=== PATIENT | female | born 1930 | race Caucasian/White ===

== ENCOUNTER 2018-02-15 14:03 | Emergency (ER) | payer MEDICARE, OTHER ==
[~2018-02-15] VITALS: Ht 142.2 cm; Wt 89.8 kg
[~2018-02-15 14:03] MED LIST: ALDACTONE25 MG PO; ALLOPURINOL 10100 M1 PO; ASPIRIN325 PO; ASPIRIN81 M2 PO; CARVEDILOL6.25 MG PO; CICLODAN90 GM TOP; COLACE100 MG PO; COREG6.25 MG PO; CYMBALTA60 MG PO; GLUCOPHAGE1000 MG PO; GLUCOPHAGE500 MG PO; HYDROCODON-ACE1 EAC7 PO; KLOR-CON 1010 MEQ PO; LEVOTHYROXIN0.125 M1 PO; LEVOTHYROXINE 0.1 MG PO; LEVOTHYROXINE100 MCG PO; LUMIGAN2.5 M1 OPHTHALMIC; MICARDIS 80 MG80 MG PO; NAPROSYN500 MG PO; OXYCODONE HCL 55 MG PO; PERCOCET PO; PRISTIQ50 M1 PO; PROAIR HFA8.5 GM; PROAIR HFA8.5 GM INH; PROAIR RESPICL90 MCG INH; TRAZODONE HCL50 MG PO
[2018-02-15 15:14] LABS: ABSOLUTE BASOPHILS 0.1 thou/uL (0.0-0.2); ABSOLUTE EOSINOPHILS 0.4 thou/uL (0.0-0.7); ABSOLUTE LYMPHOCYTES 1.7 thou/uL (0.8-5.3); ABSOLUTE MONOCYTES 0.8 thou/uL (0.0-1.2); ABSOLUTE NEUTROPHILS 8.5 thou/uL (1.6-8.1); BASOPHILS 0.5 %; EOSINOPHILS 3.2 %; HEMATOCRIT 42.9 % (37.0-47.0); HEMOGLOBIN 13.6 gm/dL (12.0-15.0); MCH 27.9 pg (26.0-34.0); MCHC 31.7 g/dL (28.0-37.0); MCV 88.2 fL (80.0-100.0); MONOCYTES 6.9 %; MPV 8.8 fl. (7.2-11.1); NUCLEATED RBCS 0 /100WBC; PLATELET COUNT* 301 thou/uL (150-400); POLYS 74.4 %; RBC 4.86 mil/uL (4.20-5.00); RDW-CV 15.8 % (10.5-14.5); WBC 11.4 thou/uL (4.0-11.0)
[2018-02-15 15:23] LABS: APTT 27.1 Seconds (25.0-31.3); INR 1.2; PROTIME 11.9 Seconds (9.20-11.50)
[2018-02-15 15:37] LABS: CALCIUM 9.4 mg/dL (8.5-10.1); CREATININE 1.2 mg/dL (0.6-1.3); POTASSIUM 3.4 mmol/L (3.5-5.1)
[2018-02-15 15:41] LABS: TOTAL BILIRUBIN 0.5 mg/dL (<0.1-1.0); TOTAL PROTEIN 7.2 g/dL (6.4-8.2)
[2018-02-15 17:00] VITALS: BP 127/62
--- NOTE | 2018-02-16 11:23 | EKG ---
[place] [address] ELECTROCARDIOGRAM REPORT Name: CALEB CHAUDHRY Room: [facility]#: [id number] Admission: 02/15/18 Attend Phys: Discharge: 02/15/18 Date of : 34 Report #: [id number] THIS REPORT FOR: //name// [facility] ED Test Date: 2018-02-15 Test Time: 14:39:20 Pat Name: CALEB CHAUDHRY Department: Room: Gender: F Product Owner: Patricia NAVARRETE : 1930 Requested By: Sol Patrick Order Number: [id number] MD: Mich Fisher Measurements Intervals [place] Rate: 91 P: -33 NM: 216 QRS: -50 QRSD: 102 T: 70 QT: 364 QTc: 448 Interpretive Statements Sinus rhythm Prolonged NM interval LAD, consider 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
== END 2018-02-15 17:01 | disposition home or self-care (01) ==
LOC: M.ERS 14:03
PROVIDERS: Physician Assistant
DX: L89.322 Pressure ulcer of left buttock, stage 2 (principal); R19.7 Diarrhea, unspecified; E11.622 Type 2 diabetes mellitus with other skin ulcer; M19.90 Unspecified osteoarthritis, unspecified site; I10 Essential (primary) hypertension; F32.9 Major depressive disorder, single episode, unspecified; G47.30 Sleep apnea, unspecified; E03.9 Hypothyroidism, unspecified; M10.9 Gout, unspecified; Z90.710 Acquired absence of both cervix and uterus; Z90.49 Acquired absence of other specified parts of digestive tract

== ENCOUNTER → 2019-07-04 | Outpatient (CLI) | payer MEDICARE, OTHER | LOC: M.CT 13:17 | DX: R10.84 Generalized abdominal pain (principal); K92.1 Melena ==

== ENCOUNTER 2019-08-06 06:05 | Inpatient (IN) | payer MEDICARE, OTHER ==
[~2019-08-06] VITALS: Ht 152.4 cm; Wt 79.8 kg
[2019-08-06 06:06] VITALS: BP 190/107
[2019-08-06 06:32] LABS: URINE BILIRUBIN NEGATIVE (Negative); URINE BLOOD 2+ (Negative); URINE CLARITY CLOUDY; URINE COLOR YELLOW; URINE GLUCOSE-RANDOM NEGATIVE (Negative); URINE KETONES NEGATIVE (Negative); URINE NITRITE-REFLEX NEGATIVE (Negative); URINE PROTEIN 1+ (Negative); URINE SPECIFIC GRAVITY 1.015 (1.005-1.030); URINE UROBILINOGEN 0.2 E.U./dl (0.2-1.0)
[2019-08-06 06:33] LABS: URINE LEUKOCYTES-REFLEX 3+ (Negative)
[2019-08-06 06:35] LABS: ABSOLUTE BASOPHILS 0.1 thou/uL (0.0-0.2); ABSOLUTE EOSINOPHILS 0.2 thou/uL (0.0-0.7); ABSOLUTE LYMPHOCYTES 1.1 thou/uL (0.8-5.3); ABSOLUTE MONOCYTES 1.7 thou/uL (0.0-1.2); ABSOLUTE NEUTROPHILS 12.7 thou/uL (1.6-8.1); BASOPHILS 0.7 %; EOSINOPHILS 1.5 %; HEMATOCRIT 37.2 % (37.0-47.0); HEMOGLOBIN 12.1 gm/dL (12.0-15.0); MCH 28.7 pg (26.0-34.0); MCHC 32.5 g/dL (28.0-37.0); MCV 88.5 fL (80.0-100.0); MONOCYTES 10.5 %; MPV 8.9 fl. (7.2-11.1); NUCLEATED RBCS 0 /100WBC; PLATELET COUNT* 281 thou/uL (150-400); POLYS 80.3 %; RDW-CV 15.7 % (10.5-14.5); WBC 15.8 thou/uL (4.0-11.0)
[2019-08-06 06:36] LABS: BACTERIA-REFLEX >30 Many /HPF (None Seen); CASTS None Seen /LPF (None Seen); CRYSTALS None Seen /LPF (None Seen); MUCUS None Seen strn/LPF (None Seen); SQUAMOUS 0-3 Few /LPF (0-3); URINE RBC >20 Many /HPF (0-2); URINE WBC-REFLEX >25 Many /HPF (0-5)
[2019-08-06 06:49] LABS: APTT 30.1 Seconds (25.0-31.3); CALCIUM 8.2 mg/dL (8.5-10.1); CREATININE 1.2 mg/dL (0.6-1.3); INR 1.2; POTASSIUM 4.2 mmol/L (3.5-5.1); PROTIME 12.7 Seconds (9.20-11.50)
[2019-08-06 06:57] LABS: ALBUMIN 2.3 g/dL (3.4-5.0); TOTAL BILIRUBIN 0.6 mg/dL (<0.1-1.0)
[2019-08-06] MEDS ORDERED: GLUCOPHAGE1000 MG PO (07:17)
[2019-08-06] MEDS ORDERED: DRIZALMA SPRINK60 MG PO (07:18)
[2019-08-06] MEDS ORDERED: ALLOPURINOL 10100 M3 PO (07:19)
[2019-08-06] MEDS ORDERED: NORVASC10 MG PO (07:19)
[2019-08-06] MEDS ORDERED: SPIRONOLACTONE25 MG PO (07:20)
[2019-08-06] MEDS ORDERED: LOSARTAN POTAS100 MG PO (07:21)
[2019-08-06] MEDS ORDERED: IMDUR 30 MG TAB30 M1 PO (07:21)
[2019-08-06] MEDS ORDERED: ASA81BEC PO (07:21)
[2019-08-06] MEDS ORDERED: ULTRAM 50MG TAB50 MG PO (07:21)
[2019-08-06] MEDS ORDERED: LEVOXYL125 MCG PO (07:21)
--- NOTE | 2019-08-06 07:38 | NUR ---
IV INSERTED BY PASTRY BAKER UNDER US GUIDANCE
--- NOTE | 2019-08-06 08:13 | NUR ---
DAYA NOTIFIED UPON PT RETURN FROM CT. DAYA WILL CONNECTE HER TO MONITOR
[2019-08-06 09:57] VITALS: BP 147/57
[2019-08-06 12:23] VITALS: BP 157/58
--- NOTE | 2019-08-06 15:47 | 2DMMODE ---
[place] [address] 2 D/M-MODE ECHOCARDIOGRAM Name: CALEB CHAUDHRY Room: [address] IN .R.#: [id number] Admission: 08/06/19 Attend Phys: Sherita bentley Sa Discharge: Date of : 34 Date of Service: 08/06/19 1545 Report #: [id number] THIS REPORT FOR: cc: Candy Martins,Candy Bruce,Ray Hwang MD [facility] ~ APPROVED REPORT Study performed: 08/06/2019 13:51:27 EXAM: Comprehensive 2D, Doppler, and color-flow Echocardiogram Patient Location: In-Patient BSA: 1.76 HR: 95 bpm BP: 124/76 mmHg Other Information Study Quality: Fair Indications Elevated BNP 2D Dimensions IVSd: 13.20 (7-11mm) LVOT Diam: 18.18 (18-24mm) LVDd: 43.79 mm PWd: 9.92 (7-11mm) Ascending Ao: 31.09 (22-36mm) LVDs: 31.12 (25-40mm) Aortic Root: 23.39 mm Volumes Left Atrial Volume (Systole) LA ESV Index: 34.20 mL/m2 Aortic Valve AoV Peak Vidal.: 1.25 m/s AO Peak Gr.: 6.28 mmHg LVOT Max P.97 mmHg AO Mean Gr.: 3.67 mmHg LVOT Mean P.11 mmHg LVOT Max V: 0.86 m/s AO V2 VTI: 19.69 cm LVOT Mean V: 0.70 m/s ISIDRO (VTI): 2.07 cm2 LVOT V1 VTI: 15.72 cm Mitral Valve MV Mean Gr.: 4.52 mmHg E/A Ratio: 4.24 [place] [address] 2 D/M-MODE ECHOCARDIOGRAM Name: CALEB CHAUDHRY Room: [address] IN .R.#: [id number] Admission: 08/06/19 Attend Phys: Sherita bentley Sa Discharge: Date of : 34 Date of Service: 08/06/19 1545 Report #: [id number] MV Decel. Time: 111.88 ms MV E Max Vidal.: 1.52 m/s MV PHT: 32.45 ms MVA (PHT): 6.78 cm2 TDI E/Lateral E': 13.82 E/Medial E': 4.11 Medial E' Vidal.: 0.37 m/s Lateral E' Vidal.: 0.11 m/s Pulmonary Valve PV Peak Vidal.: 0.87 m/s PV Peak Gr.: 3.00 mmHg Tricuspid Valve RAP Estimate: 5.00 mmHg TR Peak Gr.: 20.52 mmHg RVSP: 25.52 mmHg PA Pressure: 25.52 mmHg Left Ventricle The left ventricle is normal size. There is normal LV segmental wall motion. Mild concentric left ventricular hypertrophy. Left ventricular systolic function is hyperdynamic. LVEF is 65-70%. Right Ventricle The right ventricle is normal size. The right ventricular systolic function is normal. Atria Left atrium is borderline dilated. The right atrium size is normal. Aortic Valve Mild aortic valve sclerosis. No aortic regurgitation is present. There is no aortic valvular stenosis. Mitral Valve There is mitral annular calcification. There is no mitral valve regurgitation noted. No significant mitral valve stenosis. Tricuspid Valve The tricuspid valve is normal in structure. There is no tricuspid valve regurgitation noted. Pulmonic Valve The pulmonary valve is normal in structure. There is no pulmonic [place] [address] 2 D/M-MODE ECHOCARDIOGRAM Name: CALEB CHAUDHRY Room: [address]#: [id number] Admission: 08/06/19 Attend Phys: Sherita bentley Sa Discharge: Date of : 34 Date of Service: 08/06/19 1545 Report #: [id number] Great Vessels The aortic root is normal in size. IVC is normal in size and collapses >50% with inspiration. Pericardium There is no pericardial effusion. <Conclusion> The left ventricle is normal size. Mild concentric left ventricular hypertrophy. Left ventricular systolic function is hyperdynamic. LVEF is 65-70%. The right ventricle is normal size. Left atrium is borderline dilated. Mild aortic valve sclerosis. No aortic regurgitation is present. There is no aortic valvular stenosis. There is mitral annular calcification. There is no mitral valve regurgitation noted. No significant mitral valve stenosis. The tricuspid valve is normal in structure. IVC is normal in size and collapses >50% with inspiration. There is no pericardial effusion. There is normal LV segmental wall motion. <ELECTRONICALLY SIGNED> By: Ray Tuttle MD, FACC 08/06/19 1545 1545 1545 Ray Tuttle MD, FACC /INF
--- NOTE | 2019-08-06 16:25 | EKG ---
[place] [address] ELECTROCARDIOGRAM REPORT Name: CALEB CHAUDHRY Room: [address] ADM IN ..#: [id number] Admission: 08/06/19 Attend Phys: Sherita bentley Sa Discharge: Date of : 34 Date of Service: 08/06/19 0608 Report #: [id number] THIS REPORT FOR: //name// [facility] ED Test Date: 2019-08-06 Test Time: 06:08:02 Pat Name: CALEB CHAUDHRY Department: Room: [facility] Gender: F Perinatal Breastfeeding Assistant: [place] : 1930 Requested By: Bola Macias Order Number: [id number] MD: Ray Tuttle Measurements Intervals [place] Rate: 103 P: 33 FL: 212 QRS: 13 QRSD: 101 T: 67 QT: 320 QTc: 419 Interpretive Statements Sinus tachycardia Borderline prolonged [place] interval Anterior infarct, old Compared to ECG 02/15/2018 14:39:20 Sinus rate has increased Myocardial infarct finding still present Electronically Signed On 08-06-2019 16:23:42 CDT by Ray Tuttle [email or web address] <ELECTRONICALLY SIGNED> By: Ray Tuttle MD, [facility] 08/06/19 1623 0608 0608 Ray Tuttle MD, [facility] /EPI
[2019-08-06 17:06] VITALS: BP 157/69
--- NOTE | 2019-08-06 18:45 | NUR ---
PT ARRIVED TO UNIT VIA CART AT APPROX 0950, VSS, RA, TWISTER FRAME TENDER TRACING SINUS RHYTHM/SINUS TACH. PT A&O X4, BUT FORGETFUL, UP WITH ASSIST X1, GAIT BELT, AND WALKER, CT SHOWED NEGATIVE FOR FX. PT ORIENTED TO CALL LIGHT AND ROOM, HOURLY ROUNDING COMPLETED.
[2019-08-06 20:33] VITALS: BP 131/73
[2019-08-07] VITALS (7 sets, daily range): BP systolic 109–170; BP diastolic 49–80
[2019-08-07 05:19] LABS: HEMATOCRIT 39.9 % (37.0-47.0); HEMOGLOBIN 12.8 gm/dL (12.0-15.0); MCH 28.1 pg (26.0-34.0); MCHC 32.2 g/dL (28.0-37.0); MCV 87.3 fL (80.0-100.0); MPV 9.2 fl. (7.2-11.1); RBC 4.57 mil/uL (4.20-5.00); RDW-CV 15.5 % (10.5-14.5); WBC 13.5 thou/uL (4.0-11.0)
[2019-08-07 05:40] LABS: CALCIUM 8.4 mg/dL (8.5-10.1); CREATININE 0.9 mg/dL (0.6-1.3); POTASSIUM 3.7 mmol/L (3.5-5.1); TOTAL BILIRUBIN 0.4 mg/dL (<0.1-1.0); TOTAL PROTEIN 6.8 g/dL (6.4-8.2)
--- NOTE | 2019-08-07 05:49 | NUR ---
PATIENT ALERT BUT FORGETFUL. SHE LIKES TO LEAN SLIGHTLY FORWARD IN BED WITH PILLOW BEHIND HER BACK. ROOM AIR/ACHS. INCONTINENT. LOW AIR LOSS BED ORDERED. RECEIVED ALL MEDS SCHEDULED. RECEIVED TRAMADOL FOR PAIN. WILL CONTINUE TO FOLLOW PLAN OF CARE.
--- NOTE | 2019-08-07 15:10 | NUR ---
Pt is A&O, some forgetfulness. Pt resides at home alone. Independent with ADLs, though Pt states that she would like to have someone available to be stand by when she takes her baths, in case she needs them. CM left for Pt's dtr to discuss and confirm provided info. Family and neighbors assist with IADLs. Pt states that she has a lady that comes in every day around 10am to help rock picker her home. Unsure if Pt has had HH or SNF [place]. Per nurse, Pt will likely need HH [place] for wound care. CM awaiting call back from dtr. Following.
[2019-08-08 04:00] VITALS: BP 181/80
--- NOTE | 2019-08-08 04:44 | NUR ---
PATIENT HAS REMAINED ALERT AND ORIENTED X 4 WITH FORGETFULNESS. CALLING OUT FOR ASSIST RATHER THAN USING CALL LIGHT. USING BEDPAN FOR URINARY URGENCY AND INCONT SHE IS CALLING FOR ASSIST. DRESSINGS TO COCCYX AND LEFT ABD INTACT. SKIN CARE PROVIDED WITH Q2H TURNS. SR WITH 1ST DEGREE BLOCK ON MONITOR. DID HAVE A 6 BEAT RUN V-TACH IN THE NIGHT. MAGNESIUM REPLACEMENT IN PROGRESS. MEDS PER ORDER. CONTINUE TO MONITOR.
[2019-08-08 05:03] VITALS: BP 128/60
[2019-08-08 08:00] VITALS: BP 145/72
[2019-08-08 14:12] VITALS: BP 129/63
--- NOTE | 2019-08-08 14:32 | NUR ---
PT VSS, SR W/1*AVBLOCK ON TELE, ROOM AIR, A&OX4 BUT CONFUSED AND FORGETFUL AT BASELINE, ACCUCHECKS, UP WITH ONE TO CHAIR AND BEDSIDE COMMODE WITH GAIT BELT AND WALKER, , HOURLY ROUNDING PERFORMED, POSSESSIONS AND CALL LIGHT WITHIN REACH.
[2019-08-08 16:00] VITALS: BP 136/51
[2019-08-08 20:00] VITALS: BP 148/61
[2019-08-09 00:35] VITALS: BP 166/72
[2019-08-09 04:00] VITALS: BP 161/75
--- NOTE | 2019-08-09 07:02 | NUR ---
PT SLEPT WELL OVERNIGHT. REMAINS ON AIR MATTRESS FOR BUTTOCK WOUND. TURNED AND REPOSITIONED Q2 HOURS AND PRN FOR SKIN CARE AND COMFORT. INCONT URINE OVERNIGHT, IRISH CARE GIVEN. DRSG TO BUTTOCK CHANGED THIS MORNING ORDERED. UP WITH ASSIST TO BSC TO VOID THIS MORNING. AOX4, FORGETFUL, PLEASANT. NYSTATIN POWDER TO FOLDS ORDERED. ABLE TO USE CALL LITE AND MAKE NEEDS KNOWN. BED ALARM ON FOR SAFETY. TELE SR 1 DEGREE BLOCK.
[2019-08-09 08:10] VITALS: BP 174/64
--- NOTE | 2019-08-09 08:10 | NUR ---
ASSUMMED CARE OF PT FROM NIGHT NURSE. PT IS DOING WELL AND HAS NO CO OF PAIN OR NAUSEA AT THIS TIME. PT WAS EDUCATED ON PLAN OF CARE, FALL SAFETY, AND DISEASE PROCESS. HER BED IS IN THE LOWEST POSITION AND CALL LIGHT IS IN REACH, WILL CONTINUE TO MONITOR WITH HOURLY ROUNDING.
--- NOTE | 2019-08-09 08:32 | CON ---
[address] [address] CONSULTATION Name: CALEB CHAUDHRY Room: [address] IN M.R.#: [id number] Admission: 08/06/19 Attend Phys: Sherita Crouch Discharge: Date of : 34 Report #: [id number] THIS REPORT FOR: //name// cc: Candy Martins Linda J. DO ~ THIS REPORT FOR: //name// CC: Sherita Vences DATE OF SERVICE: 08/08/2019 INFECTIOUS DISEASE CONSULTATION ATTENDING PHYSICIAN: Sherita Mendoza MD REASON FOR EVALUATION: Pyelonephritis with Gram-negative septicemia secondary to Escherichia coli. HISTORY OF PRESENT ILLNESS: Chart reviewed, patient examined. This is an 89-year-old woman with some degree of dementia apparently, although lives by herself, who was admitted through the Emergency Room after 2 falls. Evaluation was undertaken, was found to have marked pyuria, slightly borderline elevated lactic acid of 1.9. Chest x-ray showed some increased basilar densities. Urine culture as well as blood culture now with Escherichia coli. It is generally susceptible. She is somewhat confused. It is difficult to ascertain. She states she may be better, she may not be better. She is somewhat lethargic. She is maintained on room air. Initially complains of pain and states she does not have pain. She has generally been afebrile. Empirically started on therapy with ceftriaxone and given a dose of vancomycin. ALLERGIES: IODINE AND HYDROCODONE. CURRENT MEDICATIONS: Include vancomycin, tramadol, ceftriaxone, enoxaparin, aspirin, levothyroxine, losartan, isosorbide mononitrate, spironolactone, allopurinol, amlodipine, duloxetine, metformin, famotidine. PAST MEDICAL AND SURGICAL HISTORY: Includes diabetes mellitus type 2, history of hypothyroidism, cardiomyopathy with history of congestive heart failure, sleep apnea, depression, hypertension, arthritis, previous hysterectomy, appendectomy, right breast lumpectomy. SOCIAL HISTORY: Nonsmoker, no ethanol, no illicit drug use. FAMILY HISTORY: [place] [address] CONSULTATION Name: KATARZYNANILES MUÑOZBREN Adam Room: [address]#: [id number] Admission: 08/06/19 Attend Phys: Sherita Crouch Discharge: Date of : 32 Report #: [id number] REVIEW OF SYSTEMS: Limited due to her conflicting responses. PHYSICAL EXAMINATION: GENERAL: She appears somewhat chronically ill. She is pleasant at times, somewhat adversarial at others. VITAL SIGNS: Temperature 97.6, pulse 87, respirations 20, blood pressure 129/63. SKIN: Warm, dry. No rashes. HEENT: Normocephalic. Extraocular muscles intact. NECK: Supple. LUNGS: Diminished breath sounds. She has scattered crackles at the bases. HEART: Regular. I do not appreciate a murmur. ABDOMEN: Soft, mildly distended. This is nontender. There are no peritoneal signs. No apparent CVA tenderness. GENITOURINARY AND RECTAL: Deferred. LABORATORY DATA: As described, blood culture 1 out of 2 with Gram-negative rods, isolation of Escherichia coli. Urine culture; greater than 100,000 E. coli susceptible including ampicillin. Prealbumin 9.5. Electrolytes: Sodium 141, potassium 3.7, chloride 105, bicarbonate is 26, anion gap of 10, BUN and creatinine of 14 and 0.9, glucose of 157. LFTs unremarkable. Albumin of 2.0, total protein 6.8, estimated GFR of 59. CBC: White count of 13.5, H and H of 12.8 and 39.9, platelets of 278. CT of the pelvis without contrast: No soft tissue hematoma or abnormal fluid collection. Lactic acid 1.9. ASSESSMENT AND PLAN: Gram-negative (Escherichia coli septicemia), likely due to genitourinary tract source with pyelonephritis. We will continue the ceftriaxone at this point. Plan on transition to oral therapy within 2-3 days. It is difficult to ascertain her baseline. It seems likely she would be living by herself at this point given her current situation with the fall. I do not know if it is solely related to the sepsis due to the urinary tract infection or if she has got other issues. Physical and occupational therapy evaluations are warranted. Monitor expectantly. <ELECTRONICALLY SIGNED> By: Rodriguez Lin MD 08/09/19 0832 1609 [id number] Lin MD /nt
[2019-08-09 11:23] VITALS: BP 114/61
--- NOTE | 2019-08-09 15:00 | NUR ---
PT EVAL AMD F/U NOTED. MAY NEED 1-2 MORE THERAPY SESSIONS TO DETERMINE DISCHARGE PLANS. ACUTE INPT.REHAB EVAL IN PROGRESS. UNABLE TO REACH DAUGHTER AT THIS TIME. PT.WANTS TO GO HOME. SHE SAID SHE WILL TALK WITH HER DAUGHTER.
[2019-08-09 15:21] VITALS: BP 135/62
--- NOTE | 2019-08-09 16:19 | NUR ---
WOUND NURSE: LATE ENTRY FROM 08/05: PATIENT WAS SEEN FOR COCCYX WOUND MEASURING 1.0 X 1.5 X 0.8 CM. SEE WOUND INTERVENTION FOR DETAILS OF PRESSURE INJURY AND TREATMENT PROVIDED. INSTRUCTIONS WERE PROVIDED PERTAINING TO OFFLOADING WOUND AND NUTRIENT DENSE DIET TO PROMOTE HEALING. FOLLOW UP INSTRUCTIONS WILL BE NECESSARY.
--- NOTE | 2019-08-09 18:12 | NUR ---
PT DID WELL TODAY WITH NO CO OF PAIN OR NAUSEA. SHE USES THE CALL LIGHT FOR ASSISTANCE. WILL CONTINUE TO MONITOR.
[2019-08-09 19:30] VITALS: BP 149/77
[2019-08-10] VITALS: BP 179/77
[2019-08-10 04:00] VITALS: BP 176/80
--- NOTE | 2019-08-10 04:53 | NUR ---
ASSUMED CARE OF PT AT 1900. PT IS ALERT AND ORIENTED. VSS. PERRLA. NO COMPLAINTS OF PAIN. PT IS INCONTINANT. PT IS IN SINUS RYTHM ON THE TELEMETRY. PT IS RESTING COMFORTABLY IN BED. RESPIRTIONS ARE EVEN AND NONLABORED. WILL CONTINUE TO MONITOR PT.
--- NOTE | 2019-08-10 08:00 | NUR ---
ASSUMMED CARE OF PATIENT THIS MORNING FROM BUSINESS PRACTICES OFFICER. PT IS DOING WELL AND IS ALERT BUT FORGETFUL. SHE WAS EDUCATED ON FALL SAFETY AND USING THE CALL LIGHT FOR ASSISTANCE. SHE HAS NO CO OF NAUSEA, MILD CO OF PAIN WELL TREATED WITH PO PAIN MEDICATIONS. BED IN LOWEST POSITION AND CALL LIGHT IN REACH.
[2019-08-10 12:00] VITALS: BP 127/64
[2019-08-10 15:53] VITALS: BP 128/69
[2019-08-10 19:35] VITALS: BP 143/69
[2019-08-10 23:53] VITALS: BP 158/74
--- NOTE | 2019-08-11 02:34 | NUR ---
ASSUMED CARE OF PT AT 1900. PT IS ALERT AND ORIENTED. VSS. PERRLA. NO COMPLAINTS OF PAIN. UP WITH ONE ASSIST. PT IS IN SINUS RYTHM ON THE TELEMETRY. PT IS RESTING COMFORTABLY IN BED. RESPIRATIONS ARE EVEN AND NONLABORED. WILL CONTINUE TO MONITOR PT.
[2019-08-11 04:00] VITALS: BP 163/86
[2019-08-11 08:00] VITALS: BP 138/78
[2019-08-11 12:00] VITALS: BP 119/61
[2019-08-11 16:45] VITALS: BP 124/58
--- NOTE | 2019-08-11 18:31 | NUR ---
VSS, SR ON TELE, ROOM AIR, A&OX4 WITH BASELINE FORGETFULNESS, UP WITH ONE TO BEDSIDE COMMODE AND CHAIR, HOURLY ROUNDING PERFORMED, POSSESSIONS AND CALL LIGHT WITHIN REACH. INCONTINENT OF BLADDER, LOW AIRLOSS MATTRESS, STAGE 3 PRESSURE WOUND ON COCCYX
[2019-08-11 19:35] VITALS: BP 117/67
[2019-08-12] VITALS: BP 154/71
--- NOTE | 2019-08-12 02:00 | NUR ---
ASSUMED CARE OF PT AT 1900. PT IS ALERT AND ORIENED. VSS. PERRLA. NO COMPLAINTS OF PAIN. UP WITH ONE ASSIST. PT IS IN SINUS RYTHM ON THE TELEMETRY. PT IS RESTING COMFORTABLY IN BED. RESPIRATIONS ARE EVEN AND NONLABORED. WILL CONTINUE TO MONITOR PT.
[2019-08-12 03:32] VITALS: BP 155/77
[2019-08-12 08:00] VITALS: BP 133/83
[2019-08-12] MEDS ORDERED: TRAMADOL 50 MG50 MG PO (10:22)
[2019-08-12] MEDS ORDERED: NYAMYC15 GM TOP (10:22)
[2019-08-12] MEDS ORDERED: CEFDINIR300 MG PO (10:22)
--- NOTE | 2019-08-12 11:30 | NUR ---
ASSUMED PT CARE AT 0730, PT SITTING UP IN CHAIR, SATTING 94% ON RA, TRACING SR ON THE OBJECTIVE C DEVELOPER AND HAD NO C/O PAIN OR SHORTNESS OF BREATH. PT VOICED BEING CONFUSED ABOUT WHY SHE'S HERE AND WHY SHE'S BEING ASSESSED, EXPLAINED POC TO PT, REINFORCEMENT NEEDED. PT MOVED TO BED TO REPOSITION. PT GOAL IS TO WORK W/ PT AND OT TO INCREASE ACTIVITY AND FIGURE OUT IF SHE'S MOVING UP TO REHAB. PT'S FAMILY MEMBER, JACK, CALLED AND UPDATED ON POC. JACK STATES PT HAS 7 STEPS UP TO HOUSE AND SHE IS CONCERNED ABOUT PT'S ABILITY TO AMBULATE INTO HER HOME W/OUT FALLING. AM ASSESSMENT CHARTED, MEDS PER MAR, HOURLY ROUDNING OBSERVED, BED IN LOW POSITION, BED ALARM ON, CALL LIGHT W/IN REACH, WILL CONTINUE POC.
[2019-08-12 12:11] VITALS: BP 137/66
--- NOTE | 2019-08-12 13:00 | NUR ---
[facility]/REHAB LIASON SAID REHAB CAN ACCEPT PT.TODAY. CM NOTIFIED QI DONAHUE. SHE WAS AWARE. WAITING ON TIME OF TRANSFER. SHE SAID DAUGHTER IS AWARE. SHE WILL NOTIFY DAUGHTER OF TIME OF TRANSFER.
[2019-08-12 15:16] VITALS: BP 137/66
--- NOTE | 2019-08-12 18:16 | NUR ---
NO ACUTE CHANGES THROUGHOUT SHIFT. WOUND ON BOTTOM HAD NO DRESSING ON IT. WOUND CLEANED W/ SOAP AND WATER W/ NYSTATIN, AG AND FOAM DRESSING NOW IN PLACE. PT WAS ACCEPTED TO INPT. REHAB AND WILL BE TRANSFERRED EITHER LATER TONIGHT OR TOMORROW MORNING WHEN THEY HAVE A BED. DAUGHTER CALLED AND UPDATED ON POC. MEDS PER MAY, HOURLY ROUNDING OBSERVED, PT SITTING UP IN RECLINER AND REPOSITIONED Q2H, WILL CONTINUE POC.
--- NOTE | 2019-08-12 19:10 | NUR ---
PT DC'D TO REHAB, REPORT CALLED TO TURPENTINE DISTILLER. PT TRANSFERRED W/ ALL BELONGINGS AND PAPERWORK VIA W/ NURSING STAFF TO REHAB. WOOD [employer] WO[employer]ODUCTS FACTORY WORKER AND IV REMOVED.
--- NOTE | 2019-08-13 08:23 | NUR ---
THE NOTE DATED FOR 08/12 AT 10/30 IS TO REFLCT A LATE ENTRY NOTE FOR 08/06 AT 1015
== END 2019-08-12 19:35 | DRG 871 ==
LOC: M.ERS 06:05 → M.TBA-ER 06:39 → M.2W 06:39
PROVIDERS: Family Medicine; Internal Medicine; ADMIT Family Medicine
DX: A41.51 Sepsis due to Escherichia coli [E. coli] (principal); G92 Toxic encephalopathy; N12 Tubulo-interstitial nephritis, not specified as acute or chronic; I43 Cardiomyopathy in diseases classified elsewhere; R65.20 Severe sepsis without septic shock; E03.9 Hypothyroidism, unspecified; F32.9 Major depressive disorder, single episode, unspecified; M10.9 Gout, unspecified; B96.20 Unspecified Escherichia coli [E. coli] as the cause of diseases classified elsewhere; I11.0 Hypertensive heart disease with heart failure; I16.0 Hypertensive urgency; F03.90 Unspecified dementia, unspecified severity, without behavioral disturbance, psychotic disturbance, mood disturbance, and anxiety; B36.9 Superficial mycosis, unspecified; L89.152 Pressure ulcer of sacral region, stage 2; M47.812 Spondylosis without myelopathy or radiculopathy, cervical region; I50.9 Heart failure, unspecified; G47.30 Sleep apnea, unspecified; E11.9 Type 2 diabetes mellitus without complications; Z79.82 Long term (current) use of aspirin; Z90.49 Acquired absence of other specified parts of digestive tract; Z90.710 Acquired absence of both cervix and uterus; Z79.84 Long term (current) use of oral hypoglycemic drugs; Z79.899 Other long term (current) drug therapy; Z88.5 Allergy status to narcotic agent; Z91.048 Other nonmedicinal substance allergy status

== ENCOUNTER 2019-08-12 13:24 | Inpatient (IN) | payer MEDICARE, OTHER ==
[~2019-08-12] VITALS: Ht 162.6 cm; Wt 73.4 kg
[~2019-08-12 13:24] MED LIST changes: +ALLOPURINOL 10100 M3 PO; +ASA81BEC PO; +CEFDINIR300 MG PO; +DRIZALMA SPRINK60 MG PO; +IMDUR 30 MG TAB30 M1 PO; +LEVOXYL125 MCG PO; +LOSARTAN POTAS100 MG PO; +NORVASC10 MG PO; +NYAMYC15 GM TOP; +SPIRONOLACTONE25 MG PO; +TRAMADOL 50 MG50 MG PO; +ULTRAM 50MG TAB50 MG PO
[2019-08-12 21:00] VITALS: BP 151/71
--- NOTE | 2019-08-13 05:10 | NUR ---
PT ARRIVED ONTO UNIT AT 1935. ALERT AND ORIENTED TO SELF AND PLACE ONLY. FORGETFUL AND CONFUSED. PT INITIALLY CRIED AND UPSET AT BEING IN REHAB AND WANTED TO LEAVE. NEEDED MUCH REORIENTING. PT SPOKE WITH DAUGHTER HAMMAD. WOULD CALM DOWN BE PLEASANT BUT THEN EASILY GET IRRITABLE AND UPSET. C/O PAIN TO COCCYX WOUND. ALSO HAS WOUND TO LEFT HIP. PT REFUSED PICTURES TAKEN OR DRESSING CHANGED. STRESS INCONTINENCE. MIN ASSIST WITH GAIT BELT WITH WALKER. UP TO BSC. PT REFUSED TO SLEEP IN SPECIALTY BED. NURSING STAFF ON [facility] STATE PT SLEPT IN RECLINER. SPOKE WITH HAMMAD-DAUGHTER AND UPDATED HER WITH PT STATUS. DAUGHTER REPORTS THAT IT'S POSSIBLE THAT PT WILL REFUSED THERAPIES AND THAT HER CONFUSION IS HER BASELINE. TRAMADOL WAS GIVEN TO PT AND PT SLEPT MOST OF THE NIGHT AND WAS COOPERATIVE. PT AT TIMES DOES NOT USE CALL LIGHT AND WILL YELL OUT FOR HELP INSTEAD. CALL LIGHT IN REACH AND CHAIR ALARM ON.
[2019-08-13 08:30] VITALS: BP 165/75
[2019-08-13 09:01] LABS: HEMOGLOBIN 12.6 gm/dL (12.0-15.0); MCH 28.5 pg (26.0-34.0); MCHC 32.4 g/dL (28.0-37.0); MPV 8.2 fl. (7.2-11.1); RBC 4.43 mil/uL (4.20-5.00); RDW-CV 15.8 % (10.5-14.5); WBC 12.1 thou/uL (4.0-11.0)
[2019-08-13 09:09] LABS: CALCIUM 8.6 mg/dL (8.5-10.1); CREATININE 1.3 mg/dL (0.6-1.3); POTASSIUM 4.7 mmol/L (3.5-5.1)
--- NOTE | 2019-08-13 11:34 | NUR ---
WOUND NURSE: PATIENT SEEN TO READDRESS STAGE 3 PRESSURE INJURY TO COCCYX MEASURING 1.5 X 1.0 X 0.8 CM, CONTAINING 50% YELLOW SLOUGH AND 50% GRANULATING AND NON GRANULATING TISSUE. THERE IS A MODERATE AMOUNT OF SEROUSANGUINOUS DRAINAGE PRESENT. WOUND CARE PROVIDED BY STAFF NURSE CHRIS TODAY. PATIENT INSTRUCTED ON THE IMPORTANCE OF REPOSITIONING SIDE TO SIDE WHEN IN BED, AND NO SITTING UP IN CHAIR LONGER THAN ONE HOUR AT A TIME. PATIENT IS NONCOMPLIANT AND REFUSES TO REMAIN IN BED AT ALL. EXPLAINED TO PATIENT THAT THIS IS A SITTING WOUND AND THAT SHE WILL PROBABLY NOT HEAL OR IT MAY GET WORSE, BUT SHE IS NOT RECEPTIVE. RECOMMEND THAT HER PHYSICIAN DISCUSS THIS WITH HER. PATIENT DOES HAVE WAFFLE CUSHION IN THE RECLINER, BUT DOUBT THIS IS SUFFICIENT.
--- NOTE | 2019-08-13 12:51 | NUR ---
Nutrition: Pt admitted to rehab. She has a stage III pressure ulcer on bottom. She agreed to try Sukh unflavored for wound healing - RD ordered. Protein stores are severely low - alb 2, prealb 9.5, BG 109-192. H/o gout, HTN, DM. CHo cotnrolled diet ordered. Pt stated she is eating well, good appetite. Increased nutrient needs R/T wound healing AEB stage III ulcer. Mild risk. Will follow weekly on Rehab unit.
--- NOTE | 2019-08-13 19:39 | NUR ---
ALERT WITH PERIOD OF FORGETFULNESS. PLEASANT AND COOPERATIVE TODAY. UP WITH 1 ASSIST, GAIT BELT AND WALKER. USING PO PAIN MEDICATION TO HELP WITH COCCYX PAIN FROM PRESSURE WOUND. PATIENT REFUSING TO LAY IN BED. TRIED SEVERAL TIMES THROUGHOUT DAY TO GET PATIENT TO LAY IN BED BUT PATIENT CONTINUED TO REFUSE. TALKED TO PATIENT ABOUT WOUND ON COCCYX AND NEEDING TO GET PRESSURE OFF OF AREA BUT PATIENT STILL REFUSED TO GET OUT OF RECLINER. REHAB DR NOTIFIED. HE SAYS PATIENT HAS TO HAVE TIME OUT OF RECLINER AND OFF COCCYX. PATIENT WAS SHIFTED SIDE TO SIDE WITH PILLOWS IN RECLINER. DAUGHTER NOTIFIED OF WOUND ON COCCYX AND AGREED THAT PATIENT WE NEED TO TRY AND GET PATIENT OUT OF RECLINER. SHE SAID SHE WOULD CALL PATIENT AND TRY TO TALK TO HER ABOUT GETTING OFF COCCYX AND LAYING IN BED. TALKED TO WOUND NURSE WHO RECOMMENED A HORSESHOE SHAPED CUSHION FOR RECLIER. CIVIL PROJECT ENGINEER NOTIFED. PATIENT C/O NAUSEA TODAY BUT REFUSED MEDICATION WHEN OFFERED. SHE SAID SHE ONLY WANTED MILK. MILK GIVEN AND THEN ABOUT 1 HOUR LATER PATIENT HAD DRY HEAVES WITH APOXIMATELY 10ML MILK EMESIS. PATIENT STILL REFUSED MEDICATION. MESSAGE SENT TO USES CALL LIGHT WITHIN REACH. FALL PRECAUTIONS IN PLACE, BED ALARM AND CHAIR ALARM USES.
[2019-08-13 20:00] VITALS: BP 134/63
--- NOTE | 2019-08-14 05:26 | NUR ---
ASSUMED CARES AT 1920. ALERT AND ORIENTED X 2. FORGETFUL. HX OF DEMENTIA. MIN ASSIST WITH GAIT BELT AND WALKER. UP TO BSC. STRESS INCONTINENCE. VOIDED SMALL AMOUNTS. ASKED PT TO LAY IN BED FOR BLADDER SCAN BUT PT REFUSED. ATTEMPTED NUMEROUS TIMES BUT PT STILL REFUSED TO SLEEP IN BED DESPITE EDUCATION ON PRESSURE WOUND. DRESSING TO COCCYX INTACT. NO FURTHER NAUSEA/VOMITING. REFUSED ANY PAIN MED. PT DID ALLOW SHIFT OFF BOTTOM WHILE IN CHAIR. CALL LIGHT IN REACH AND CHAIR ALARM ON.
[2019-08-14 08:30] VITALS: BP 143/62
--- NOTE | 2019-08-14 15:00 | NUR ---
Initial inpt rehab assessment and team conference: SUMIT and Dr Jon met with pt to review team conference summary and plan for pt to remain on rehab unit to continue therapies and team to reassess pt length of stay during team conference next Monday. Pt was disappointed and wants to go home hu. Dr Jon and SUMIT explained pt needs to be able to perform tasks safely and with independence with therapy prior to team agreeing pt is ready to dc. Pt was arguring that she could do them and wondered who would say that she wasn't able to complete stairs and ADLs. Dr Jon mentioned eventually pt could possibly move to [facility] transitional apt but pt said she would not want to change rooms and she calmed down then. SUMIT called pt dtr and spoke at length about team's experiences with pt and the recommendations and the possibilty pt will not be safe to return home alone. Pt has lived at home alone with dtr only a couple of miles away. Pt dtr did arrange for media coordinator through [facility] 5 days a week in the afternoons but pt dtr agrees that pt to be home alone at times is not ideal and pt has exhibited cognition issues over the past 5 years. Pt dtr explained that pt personality has always been "argumentative" and that they often have difficult conversations about pt safety. SW to continue to follow to assist with safe dc planning.
--- NOTE | 2019-08-14 17:17 | NUR ---
ALERT BUT FORGETFUL. UP WITH 1 ASSIST, GAIT BELT AND WALKER. STILL REFUSING TO GET OUT OF RECLINER AND LAY IN BED. DR TRIED TO TALK WITH PATIENT BUT PATIENT STILL REFUSING TO GO TO BED EVEN FOR SHORT PERIODS. PATIENT SHIFTED SIDE TO SIDE IN RECLINER WITH PILLOWS. GIVEN MOM FOR CONSTIPATION AND HAD EXTRA LARGE BOWEL MOVEMENT. DENIED NEED FOR NAUSEA MEDICATION TODAY. USES CALL LIGHT WITHIN REACH. FALL PRECAUTIONS IN PLACE. CHAIR ALARM USED.
[2019-08-14 20:00] VITALS: BP 134/60
--- NOTE | 2019-08-15 07:55 | NUR ---
ASSUMED CARES AT 1920. ALERT AND ORIENTED X 2. FORGETFUL. UPON ARRIVAL PT WAS UPSET AND STATED "I WANT TO LEAVE HERE NOW." HAD PT TALK WITH DAUGHTER ON PHONE. AFTERWARDS, PT DID NOT MAKE ANY FURTHER COMMENTS HAD NO OTHER COMPLAINTS REST OF NIGHT. DENIED ANY N/V. DRESSING TO COCCYX INTACT. MIN ASSIST WITH GAIT BELT AND WALKER. UP TO BSC. PULLUPS. STRESS INCONTINENCE. PT CONTINUES TO REFUSE TO SLEEP IN BED. SLEPT WELL IN RECLINER. DOES NOT ALWAYS USE CALL LIGHT AND WILL YELL OUT. CALL LIGHT IN REACH AND BED ALARM ON.
[2019-08-15 10:33] VITALS: BP 138/74
--- NOTE | 2019-08-15 14:24 | NUR ---
Nutrition: Consult received for "poor diet at home." RD has assessed this pt already for rehab at a mild nutrition risk. Went to speak with pt twice today and she was in therapies both attempts. Spoke with RN. Pt ate 100% of her meals today. She eats well when food is given to her. She does have that ulcer and added protein would be beneficial. Sukh is ordered. RD also left Ensure in pt's room today for her to try. Apparently pt doesn't like to cook at home. Encourage Glucerna or other oral supplements for home use. Will follow weekly.
--- NOTE | 2019-08-15 16:30 | NUR ---
ASSUMMED CARE OF PT AT 0730, PT ALERT, FORGETFUL, TRANSFERS WITH MODERATE ASSIST GB WALKER, NEEDS CUEING, PT REFUSES TO LAY DOWN IN SPECIALTY BED, IS AGREEABLE TO REPOSITIONING IN CHAIR EVERY 2 HOURS,[address] CUSHION IN PLACE, PT VOIDS PER COMMODE, WEARS BRIEF FOR STREES INCONTINENCE, ATE 75% OF BREAKFAST AND LUNCH TRAYS, DRESSING CHANGED TO COCCYX AREA, NYSTATIN POWDER APPLIED TO RED GROIN AREA AND UNDER ABDOMINAL FOLDS, MEDICATED PER ORDER FOR PAIN, ABD X/R AND VENOUS DOPPLER COMPLETED, PARTICIPATED IN ALL THERAPIES, HOURLY ROUNDING COMPLETED, ASSESSMENT COMPLETE, CALLED HAMMAD (DAUGHTER) WITH UPDATE, QUESTIONS ANSWERED, WILL CONTINUE TO MONITOR.
[2019-08-15 20:10] VITALS: BP 120/52
--- NOTE | 2019-08-16 04:39 | NUR ---
ASSUMED PT CARE AT 1930. PT ALERT AND ORIENTED X2, FORGETFUL. PT UP TO COMMODE WITH MODERATE ASSIST, CUEING, GAIT BELT AND WALKER. WEARS BRIEFS FOR STRESS INCONTINENCE. PT SLEPT IN CHAIR, REFUSES TO SLEEP IN SPECIALTY BED. WAFFLE CUSION IN PLACE, REPOSITIONED Q2. DRESSING TO COCCYX INTACT. CALL LIGHT IN REACH AND CHAIR ALARM ON FOR SAFETY. HOURLY ROUNDING IN PROGRESS, WILL CONTINUE TO MONITOR.
[2019-08-16 07:54] VITALS: BP 156/67
--- NOTE | 2019-08-16 18:21 | NUR ---
ASSUMMED CARE OF PT AT 0730, PT ALERT FORGETFUL, PT TRANSFERS WITH SBA, GB WALKER, NEEDS ENCOURAGEMENT TO DO OWN SELF CARE SKILLS, APETITE GD, AMBULATES TO TOILET TO VOID, DRESSING INTACT TO SACRAL WOUND, BUTTOCKS REDDENED, BARRIER OINTMENT APPLIED, PT ENCOURAGED TO REPOSITION EVERY 2 HOURS, REFUSES TO LAY IN SPECIALTY BED, DOES AMBULATE AND WILL ALLOW BEING PROPED TO ONE SIDE OR THE OTHER IN CHAIR, WAFFLE CUSHION UNDER PT, PT DENIES PAIN, PARTICIPATED IN ALL THERAPIES, HOURLY ROUNDING COMPLETED, ASSESSMENT COMPLETE, NURSE CALLED DAUGHTER JACK WITH UPDATE, WILL CONTINUE TO MONITOR.
[2019-08-16 20:00] VITALS: BP 155/63
--- NOTE | 2019-08-17 04:49 | NUR ---
ASSUMED PT CARE AT 1930. PT UPSET AND ADAMANT THAT SHE IS GOING HOME TONIGHT. PT INCONSOLABLE FOR A TIME. AFTER SPEAKING WITH HER DAUGHTER JACK, PATIENT CALMED DOWN AND WAS COOPERATIVE THE REST OF THE SHIFT. PT UP WITH SBA, GAIT BELT AND WALKER TO BESIDE COMMODE TO VOID. PT SITS IN CHAIR OVERNIGHT, REFUSES SPECIALTY BED. PT PROPPED WITH PILLOWS TO ALTERNATE SIDES IN CHAIR. WAFFLE CUSHION IN PLACE. DRESSING TO SACRAL WOUND INTACT. PT USES CALL LIGHT APPROPRIATELY. HOURLY ROUNDING IN PROGRESS, WILL CONTINUE TO MONITOR.
[2019-08-17 08:15] VITALS: BP 146/61
--- NOTE | 2019-08-17 18:59 | NUR ---
ALERT BUT FORGETFUL AT TIMES. UP WITH 1 ASSIST, GAIT BELT AND WALKER. C/O PAIN WITH COCCYX WOUND BUT REFUSED TO LAY DOWN IN BED. REPOSITIONED IN CHAIR WITH PILLOWS. DRESSING CHANGED TO COCCYX WOUND. HAD 2 GOOD SOFT STOOLS TODAY. CHAIR ALARM USED. FALL PRECAUTIONS IN PLACE.
[2019-08-17 19:42] VITALS: BP 131/50
--- NOTE | 2019-08-18 04:30 | NUR ---
ASSUMED PT CARE AT 1930. PT ALERT AND ORIENTED BUT CAN BE FORGETFUL. PT IN GOOD MOOD TONIGHT. SNACK PROVIDED. PT SLEPT IN CHAIR OVERNIGHT, REFUSES TO GET INTO BED. UP TO BSC TO VOID WITH GAIT BELT, WALKER AND ASSIST OF ONE. USES CALL LIGHT BUT SOMETIMES JUST CALLS OUT. DRESSING TO COCCYX INTACT. CALL LIGHT AND FREQUENTLY USED ITEMS IN REACH. CHAIR ALARM ON FOR SAFETY. HOURLY ROUNDING IN PROGRESS, WILL CONTINUE TO MONITOR.
[2019-08-18 08:15] VITALS: BP 136/68
--- NOTE | 2019-08-18 17:33 | NUR ---
ALERT X2 WITH PERIODS OF FORGETFULNESS. PLEASANT AND COOPERATIVE WITH STAFF TODAY. DENIES NEED FOR PAIN MEDICATION. C/O PAIN WITH COCCYX WOUND BUT REFUSED TO GO TO BED. UP WITH 1 ASSIST, GAIT BELT AND WALKER. DRESSING CHANGED TO COCCYX WOUND. USES CALL LIGHT WHEN NEEDING ASSIST. FALL PERCAUTIONS IN PLACE. BED ALARM AND CHAIR ALARM USED. SOMETIMES INCONTINENT OF URINE.
[2019-08-18 20:00] VITALS: BP 119/90
--- NOTE | 2019-08-19 05:12 | NUR ---
ASSUMED CARES AT 1920. ALERT AND ORIENTED X 2. PLEASANT TONIGHT. C/O PAIN TO BOTTOM BUT REFUSED PAIN MEDS. PT REPOSITIONED IN CHAIR WITH PILLOWS. MIN ASSIST WITH GAIT BELT AND WALKER. UP TO BSC. STRESS INCONTINENCE. DRESSING TO COCCYX INTACT. SLEPT IN RECLINER. NO ISSUES OVERNIGHT. CALL LIGHT IN REACH AND BED ALARM ON.
[2019-08-19 07:50] VITALS: BP 145/60
--- NOTE | 2019-08-19 17:13 | NUR ---
ALERT WITH PERIODS OF FORGETFULNESS. UP WITH 1 ASSIST, GAIT BELT AND WALKER. C/O BUTTOCK PAIN BUT REFUSES PAIN MEDICATION. PATIENT STILL REFUSING TO GO TO BED AND LAY DOWN. NEW HORSESHOE CUSHION PUT IN RECLINER. HAS DRY DRESSING OVER COCCYX WOUND. USES CALL LIGHT WHEN NEEDING ASSIST. VOIDS IN BEDSIDE COMMODE BUT STILL HAS SOME STRESS INCONTINENCE. FALL PRECAUTIONS IN PLACE. BED ALARM AND CHAIR ALARM USED.
[2019-08-19 20:22] VITALS: BP 120/52
--- NOTE | 2019-08-20 04:37 | NUR ---
ASSUMED PT CARE AT 1930. ALERT AND ORIENTED X2. POLITE AND COOPERATIVE WITH CARES. NO C/O PAIN. PT COMPLAINING ABOUT HORSESHOE CUSHION IN CHAIR. PT REPOSITIONED WITH PILLOWS OVERNIGHT. UP WITH MIN ASSIST, GAIT BELT AND WALKER TO [facility] TO VOID. STRESS INCONTINENCE IN BRIEFS. MEPILEX TO COCCYX INTACT. SLEPT IN RECLINER, WILL NOT SLEEP IN BED. CALL LIGHT IN REACH. CHAIR ALARM ON FOR SAFETY. HOURLY ROUNDING IN PROGRESS, WILL CONTINUE TO MONITOR.
[2019-08-20 08:07] VITALS: BP 173/73
--- NOTE | 2019-08-20 15:36 | NUR ---
ASSUMMED CARE OF PT AT 0730, PT ALERT, FORGETFUL, TRANSFERS WITH ASSIST OF 1, GB WALKER, PT STATES SHE WANTS TO GO HOME, BUT ABLE TO TALK WITH PT AND CALM HER, DRESSING TO COCCYX AREA CHANGED X 1 AFTER SHOWER, PT UP IN CHAIR ALL SHIFT, REFUSES TO LAY IN BED, HORSE SHOE PILLOW IN CHAIR, PT AMBULATES TO BATHROOM WITH GB WALKER, REPOSTIONED IN CHAIR BM X 1 THIS SHIFT, VOIDS PER TOILET, PT DENIES PAIN, PARTICIPATED IN ALL THERAPIES, HOURLY ROUNDING COMPLETED, ASSESSMENT COMPLETE, WILL CONTINUE TO MONITOR.
[2019-08-20 19:00] VITALS: BP 150/69
--- NOTE | 2019-08-21 04:35 | NUR ---
ASSUMED PT CARE AT 1930. PT ALERT AND ORIENTED, FORGETFUL. PT IN GOOD MOOD TONIGHT, COOPERATIVE WITH CARES. DRESSING TO COCCYX INTACT. PT SLEEPS IN CHAIR WITH HORSESHOE PILLOW AND OTHER PILLOWS TO SHIFT POSITION. ADAMANT SHE WILL NOT SLEEP IN BED. UP WITH GAIT BELT, WALKER AND ASSIST OF ONE TO BSC TO VOID. WEARS BRIEFS. DENIES PAIN. USES CALL LIGHT SOMETIMES, OTHER TIMES CALLS OUT. CALL LIGHT IN REACH, CHAIR ALARM ON FOR SAFETY. HOURLY ROUNDING IN PROGRESS, WILL CONTINUE TO MONITOR.
[2019-08-21 08:05] VITALS: BP 156/66
--- NOTE | 2019-08-21 17:44 | NUR ---
SUMIT and Dr Jon met with pt to review team conference summary and explained to her that there will be telepsych eval today. Pt wants to dc home everyday and team tells her everyday that she would not be safe to return home alone. SW talked at length with pt dtr about dc planning and SW will try for SNF, [facility]. SW to send referral and assist with finalizing safe dc plan/placement.
--- NOTE | 2019-08-21 18:16 | NUR ---
ASSESSMENT COMPLETED DOCUMENTED THIS MORNING. PATIENT SEEN BY TELEPSYCH AFTER TEAM CONFERENCES TODAY AND NOTE IN PATIENT'S CHART STATES, HAS CAPACITY FOR DECISIONS BUT NOT COMPETENCY AND RECOMMENDS F/U WITH FAMILY AND WARE CARRIER AFTER DC.
[2019-08-21 19:30] VITALS: BP 143/62
--- NOTE | 2019-08-22 01:01 | NUR ---
ASSUMED CARE @ 1934-08/20-MON.SITS IN RECLINER W/ LE'S UP.WATCHING TV.CHAIR ALARM ON ALREAdy @ 1934.ASSISTED TO BED W/ 2 PERSONS @ 2049.HOB UP.URINAL W/IN REACH. DRY SKIN TEAR FOUND RIGHT FOREARM.CLEANSED W/ NS.LARGE CLOTH BAND AID APPLIED @ 2119.C PAP PUT ON BY PATIENT @ 2129.O2 SAT @ 29-08/21- -99% W/ C PAP.ON HOURLY ROUNDS.SUPERVISOR WRAPPING ROOM DOING ODD HOUR ROUNDS.
--- NOTE | 2019-08-22 01:08 | NUR ---
ASSUMED CARE @ 1934-08/20-MON.SITS IN RECLINER W/ LE'S UP.CHAIR ALARM ON ALREAdy @ 1934.BATHROOM LIGHT ON ALL NIGHT.SLEEPS IN RECLINER ALL NIGHT W/ LE'S UP.WEARS PULL UPS.ON HOURLY ROUNDS.GLUE BONE DRIER DOING ODD HOUR ROUNDS
--- NOTE | 2019-08-22 05:40 | NUR ---
SLEPT SINCE 2134 & SLEEPING GOOD ALL NIGHT.BRP X2.INC URINE X1.PULL UPS CHANGED X1.TOOK ALL TURKEY SANDWICH & APPLE JUICE HS SNACKS.
[2019-08-22 08:00] VITALS: BP 156/69
--- NOTE | 2019-08-22 18:16 | NUR ---
ASSESSMENT COMPLETED DOCUMENTED THIS MORNING. PATIENT REMAINS EASILY IRRITATED, IMPAIRED SHORT TERM MEMORY AND DEMANDING TO GO HOME. [facility] WORKING ON DC PLANS AND HAS BEEN IN CONTACT WITH FAMILY OFTEN TODAY. DENIES ANY PAIN, APPETITE GOOD AND HAS BEEN CONT OF B&B.
[2019-08-22 20:13] VITALS: BP 143/52
--- NOTE | 2019-08-23 01:30 | NUR ---
ASSUMED CARE @ 1916-08/21-.SITS IN RECLINER W/ LE'S UP WATCHING TV. CHAIR ALARM ON ALREADY @ 1916.WEARS PULL UPS.ON HOURLY ROUNDS.PAIRER ODDS DOING ODD HOUR ROUNDS.
--- NOTE | 2019-08-23 06:31 | NUR ---
SLEEPING @ 2200 & SLEPT GOOD ALL NIGHT IN RECLINER.USED BSC X1.BRP W/ASSIST X1.TOOK ONLY TURKEY SANDWICH W/H20 HS SNACK. NEW DRSG APPLIED TO ULCER COCCYX @ 0550.
[2019-08-23 08:23] VITALS: BP 156/78
--- NOTE | 2019-08-23 14:13 | NUR ---
Nutrition: Wt down with intake 20-100%. Will add Glucerna BID.
--- NOTE | 2019-08-23 15:58 | NUR ---
WOUND NURSE: PATIENT SEEN FOR FOLLOW UP ASSESSMENT PERTAINING TO COCCYGEAL PRESSURE INJURY. NOT STAGEABLE DUE TO PRESENCE OF 100% SLOUGH IN THE WOUND BED. THERE IS A SMALL AMOUNT OF SEROUS DRAINAGE NOTED ON THE OLD DRESSING. PATIENT REMAINS NONCOMPLIANT REFUSING PRESSURE RELIEF EXCEPT FOR SPECIAL CHAIR CUSHION. REFUSES TO USE SPECIALTY BED. REFUSED CONSIDERATION FOR SURGERY CONSULT FOR WOUND DEBRIDEMENT. PATIENT WAS INSTRUCTED OF THE CONSEQUENCES OF FAILURE TO OFFLOAD THE WOUND. SHE IS NOT RECEPTIVE.
--- NOTE | 2019-08-23 16:23 | NUR ---
SUMIT and Dr Jon met with pt to discuss dc planning and pt requested talking with pt dtr and SW about planning. SUMIT called pt dtr Yolanda in pt room and discussed at length about recommendations and dc options and pt said she would go to a facility on Monday and that she would trust Yolanda but she did not want "strangers" deciding for her. SUMIT spoke with Yolanda again about [facility] and [facility] SNFs willing to accept pt on Monday and will discuss final dc plans on Monday.
--- NOTE | 2019-08-23 17:34 | NUR ---
ALERT WITH PERIODS OF FORGETFULNESS. UP WITH 1 ASSIST GAIT BELT AND WALKER. CONTINENT OF URINE TODAY. NO BOWEL MOVEMENT TODAY. REFUSES TO USE SPECIALTY BED. WILL ONLY SIT IN RECLINER. ON SPECIALTY CUSHION IN RECLINER. USES CALL LIGHT WHEN NEEDING ASSIST. FALL PRECAUTIONS IN PLACE. BED ALARM AND CHAIR ALARM USED.
--- NOTE | 2019-08-23 19:50 | NUR ---
SITTING UP IN RECLINER WITH LEGS ELEVATED WATCHING TV. CALL LIGHT WITHIN REACH. DENIES DISCOMFORT.
[2019-08-23 20:09] VITALS: BP 125/56
--- NOTE | 2019-08-24 04:33 | NUR ---
AMBULATED TO THE BATHROOM BEFORE GOING TO BED WITH CGA, GAITBELT, WALKER. INCONTINENT OF URINE PRIOR TO GOING TO THE BATHROOM. SLEPT IN RECLINER WITH LEGS ELEVATED. REFUSES TO SLEEP IN THE BED. HOURLY ROUNDING IN PROGRESS.
[2019-08-24 09:02] VITALS: BP 148/67
--- NOTE | 2019-08-24 18:03 | NUR ---
ASSESSMENT COMPLETED DOCUMENTED THIS MORNING. PATIENT HAS BEEN QUIETLY RESTING IN HER ROOM TODAY. NO C/O VOICED OTHER THAN "I WANT TO GO HOME." AMBULATING TO AND FROM THE BR WITH ONE SBA AND WALKER/GB. UA OBTAINED AND TAKEN TO LAB THIS AFTERNOON PER DR. EDWARDS'S ORDERS.
[2019-08-24 20:18] VITALS: BP 125/52
--- NOTE | 2019-08-25 04:36 | NUR ---
ASSUMED PT CARE AT 1930. PT ALERT AND ORIENTED X4, TONIGHT POLITE AND COOPERATIVE WITH CARES. BEDTIME SNACK PROVIDED. UP TO BS WITH STANDBY ASSIST, GAIT BELT AND WALKER TO VOID. WEARS BRIEF. SLEPT IN RECLINER ALL NIGHT, WILL NOT SLEEP IN BED. HORSESHOE PILLOW IN PLACE. USES CALL LIGHT SOMETIMES, OTHER TIMES CALLS OUT. CALL LIGHT IN REACH. CHAIR ALARM ON FOR SAFETY. HOURLY ROUNDING IN PROGRESS, WILL CONTINUE TO MONITOR.
[2019-08-25 07:25] LABS: URINE BILIRUBIN NEGATIVE (Negative); URINE BLOOD NEGATIVE (Negative); URINE CLARITY CLEAR; URINE COLOR YELLOW; URINE GLUCOSE-RANDOM NEGATIVE (Negative); URINE KETONES NEGATIVE (Negative); URINE LEUKOCYTES-REFLEX NEGATIVE (Negative); URINE NITRITE-REFLEX NEGATIVE (Negative); URINE PROTEIN NEGATIVE (Negative); URINE UROBILINOGEN 0.2 E.U./dl (0.2-1.0)
[2019-08-25 08:00] VITALS: BP 147/66
--- NOTE | 2019-08-25 15:54 | NUR ---
ASSESSMENT COMPLETED DOCUMENTED THIS MORNING. HAS BEEN QUIETLY RESTING IN CHAIR ALL DAY TODAY, ASSISTED TO BR WITH ONE SBA, CHRISTIAN/SUSU. ALERT AND PLEASANT, BUT HAS MOMENTS OF BECOMING EASILY IRRITATED WITH STAFF AND WILL IMMEDIATELY FORGET WHO YOU ARE THE NEXT TIME YOU COME INTO HER ROOM. DRESSING INTACT ON COCCYX AND IS SITTING ON PRESSURE RELIEVING HORSESHOE PILLOW.
[2019-08-25 19:30] VITALS: BP 139/58
--- NOTE | 2019-08-26 04:54 | NUR ---
ASSUMED PT CARE AT 1930. PT ALERT AND ORIENTED, SOMETIMES FORGETFUL. TONIGHT POLITE AND COOPERATIVE WITH CARES. BEDTIME SNACK PROVIDED. UP TO BSC WITH STANDBY ASSIST, GAIT BELT AND WALKER TO VOID. WEARS BRIEF. SLEPT IN RECLINER ALL NIGHT, WILL NOT SLEEP IN BED. HORSESHOE PILLOW IN PLACE. USES CALL LIGHT APPROPRIATELY SOMETIMES, OTHER TIMES CALLS OUT. CALL LIGHT IN REACH. CHAIR ALARM ON FOR SAFETY. PT TO BE DISCHARGED TO [facility] TODAY. HOURLY ROUNDING IN PROGRESS, WILL CONTINUE TO MONITOR.
[2019-08-26 06:22] VITALS: BP 171/61
[2019-08-26 07:52] VITALS: BP 171/61
[2019-08-26] MEDS ORDERED: AMBIEN5 MG PO (13:04)
[2019-08-26] MEDS ORDERED: DULCOLAX10 MG RECTAL (13:06)
[2019-08-26] MEDS ORDERED: DOCUSATE SODIU100 MG PO (13:07)
[2019-08-26] MEDS ORDERED: CYMBALTA60 MG PO (13:07)
[2019-08-26] MEDS ORDERED: FLEET ENEMA133 ML RECTAL (13:09)
[2019-08-26] MEDS ORDERED: MILK OF MA400 MG/5 M PO (13:11)
[2019-08-26] MEDS ORDERED: MYLANTA MAXIMU355 ML PO (13:12)
[2019-08-26] MEDS ORDERED: TYLENOL PO (13:15)
[2019-08-26 13:19] VITALS: BP 171/61
--- NOTE | 2019-08-26 13:40 | NUR ---
SUMIT received call from pt dtr Yolanda who said that pt is excited to dc today and remains agreeable to SNF. SUMIT called [facility] and they do not have bed available today. SUMIT called second choice of [facility] and they can still accept pt and they have a bed available today. SW faxed final orders/med list. SW called pt dtr and she is in agreement with plan and is providing transport to [facility] at 2 pm. Pt nurse aware. [facility] ph [phone]
--- NOTE | 2019-08-26 14:27 | NUR ---
REPORT CALLED TO ROMERO AT [facility]. SHE WAS NOTIFIED OF MOST RECENT ASSESSMENT,V/S AND LABS. WRITTEN RX GIVEN TO FAMILY FOR ULTRAM FOR PATIENT. DENIES PAIN AT THIS TIME. DRY DRESSING ON COCCYX WOUND AT TIME OF DISCHAGE. PATIENT UP WITH STAND BY ASSIST, GAIT BELT AND WALKER. PATIENT LEFT VIA W/C IN FAMILY CAR AT 1420.
== END 2019-08-26 14:20 | DRG 947 ==
LOC: M.REH 13:24
PROVIDERS: Internal Medicine; ADMIT Physical Medicine & Rehabilitation; ATTEND Physical Medicine & Rehabilitation
DX: R53.81 Other malaise (principal); A41.9 Sepsis, unspecified organism; G92 Toxic encephalopathy; N39.0 Urinary tract infection, site not specified; B96.20 Unspecified Escherichia coli [E. coli] as the cause of diseases classified elsewhere; I16.0 Hypertensive urgency; I10 Essential (primary) hypertension; E03.9 Hypothyroidism, unspecified; M47.892 Other spondylosis, cervical region; F03.90 Unspecified dementia, unspecified severity, without behavioral disturbance, psychotic disturbance, mood disturbance, and anxiety; L89.152 Pressure ulcer of sacral region, stage 2; M19.90 Unspecified osteoarthritis, unspecified site; F32.9 Major depressive disorder, single episode, unspecified; M10.9 Gout, unspecified; E11.65 Type 2 diabetes mellitus with hyperglycemia; L30.8 Other specified dermatitis; K57.90 Diverticulosis of intestine, part unspecified, without perforation or abscess without bleeding; Z88.8 Allergy status to other drugs, medicaments and biological substances

== ENCOUNTER 2019-10-02 13:07 | Inpatient (IN) | payer MEDICARE, OTHER ==
[~2019-10-02] VITALS: Ht 162.6 cm; Wt 74.4 kg
[~2019-10-02 13:07] MED LIST changes: +ACETAMINOPHEN PO; +AMBIEN5 MG PO; +DOCUSATE SODIU100 MG PO; +DULCOLAX10 MG PO; +FLEET ENEMA133 ML RECTAL; +MILK OF MA400 MG/5 M PO; +MYLANTA MAXIMU355 ML PO
[2019-10-02 13:31] VITALS: BP 99/54
[2019-10-02 14:19] LABS: ABSOLUTE BASOPHILS 0.1 thou/uL (0.0-0.2); ABSOLUTE EOSINOPHILS 0.2 thou/uL (0.0-0.7); ABSOLUTE LYMPHOCYTES 0.9 thou/uL (0.8-5.3); ABSOLUTE MONOCYTES 0.9 thou/uL (0.0-1.2); ABSOLUTE NEUTROPHILS 7.9 thou/uL (1.6-8.1); BASOPHILS 0.6 %; EOSINOPHILS 1.8 %; HEMATOCRIT 37.9 % (37.0-47.0); HEMOGLOBIN 12.2 gm/dL (12.0-15.0); LYMPHOCYTES 8.6 %; MCHC 32.2 g/dL (28.0-37.0); MCV 83.9 fL (80.0-100.0); MONOCYTES 9.4 %; MPV 8.6 fl. (7.2-11.1); NUCLEATED RBCS 0 /100WBC; PLATELET COUNT* 420 thou/uL (150-400); POLYS 79.6 %; RBC 4.52 mil/uL (4.20-5.00); RDW-CV 16.6 % (10.5-14.5); WBC 9.9 thou/uL (4.0-11.0)
[2019-10-02 14:29] LABS: CALCIUM 7.9 mg/dL (8.5-10.1); CREATININE 1.2 mg/dL (0.6-1.3); POTASSIUM 4.7 mmol/L (3.5-5.1)
[2019-10-02 14:32] LABS: APTT 29.5 Seconds (25.0-31.3); INR 1.2; PROTIME 11.9 Seconds (9.20-11.50)
[2019-10-02 14:42] LABS: URINE BILIRUBIN NEGATIVE (Negative); URINE BLOOD NEGATIVE (Negative); URINE CLARITY CLEAR; URINE COLOR YELLOW; URINE GLUCOSE-RANDOM NEGATIVE (Negative); URINE KETONES NEGATIVE (Negative); URINE LEUKOCYTES-REFLEX NEGATIVE (Negative); URINE NITRITE-REFLEX NEGATIVE (Negative); URINE PROTEIN NEGATIVE (Negative); URINE SPECIFIC GRAVITY 1.025 (1.005-1.030); URINE UROBILINOGEN 0.2 E.U./dl (0.2-1.0)
[2019-10-02 14:45] LABS: ALBUMIN 1.8 g/dL (3.4-5.0); TOTAL BILIRUBIN 0.3 mg/dL (<0.1-1.0); TOTAL PROTEIN 7.1 g/dL (6.4-8.2)
[2019-10-02 18:15] VITALS: BP 115/79
[2019-10-02] MEDS ORDERED: FLEET ENEMA133 ML RECTAL (20:30)
[2019-10-02] MEDS ORDERED: SUPER THERAVIT1 EACH PO (20:32)
[2019-10-02 20:49] VITALS: BP 147/72
[2019-10-03] VITALS: BP 112/60
[2019-10-03 04:00] VITALS: BP 131/58
[2019-10-03 05:13] LABS: ALBUMIN 1.8 g/dL (3.4-5.0); CALCIUM 8.4 mg/dL (8.5-10.1); CREATININE 1.1 mg/dL (0.6-1.3); POTASSIUM 4.4 mmol/L (3.5-5.1); TOTAL BILIRUBIN 0.3 mg/dL (<0.1-1.0)
[2019-10-03 08:00] VITALS: BP 147/62
[2019-10-03 12:24] VITALS: BP 125/101
[2019-10-03 12:30] VITALS: BP 125/101
--- NOTE | 2019-10-03 13:19 | EKG ---
[place] [address] ELECTROCARDIOGRAM REPORT Name: CALEB CHAUDHRY Room: [address] IN ..#: [id number] Admission: 10/02/19 Attend Phys: Joe Cortés Discharge: Date of : 34 Date of Service: 10/02/19 1314 Report #: [id number] THIS REPORT FOR: //name// [facility] ED Test Date: 2019-10-02 Test Time: 13:14:52 Pat Name: CALEB CHAUDHRY Department: Room: [facility] Gender: F Loop Sewer: KAYCE : 1930 Requested By: Bola Macias Order Number: [id number] MD: Sam Gonzales Measurements Intervals [facility] Rate: 87 P: 10 MT: 199 QRS: 7 QRSD: 103 T: 61 QT: 339 QTc: 408 Interpretive Statements Sinus rhythm Anterior infarct, old Compared to ECG 08/06/2019 06:08:02 Sinus tachycardia no longer present Myocardial infarct finding still present Electronically Signed On 10-03-2019 13:19:13 CDT by Sam Gonzales [email or web address] <ELECTRONICALLY SIGNED> By: Sam Gonzales MD, FAC 10/03/19 1319 1314 1314 Sam Gonzales MD, [facility] /EPI
[2019-10-03 20:03] VITALS: BP 101/48
[2019-10-04 04:00] VITALS: BP 116/62
[2019-10-04 08:00] VITALS: BP 129/90
[2019-10-04 20:00] VITALS: BP 117/52
[2019-10-05] VITALS: BP 133/58
[2019-10-05 04:00] VITALS: BP 142/73; BP 145/82
[2019-10-05 08:57] VITALS: BP 140/76
[2019-10-05 16:03] LABS: HEMATOCRIT 33.4 % (37.0-47.0); HEMOGLOBIN 10.9 gm/dL (12.0-15.0); MCH 26.9 pg (26.0-34.0); MCHC 32.8 g/dL (28.0-37.0); MCV 82.1 fL (80.0-100.0); MPV 8.6 fl. (7.2-11.1); NUCLEATED RBCS 0 /100WBC; PLATELET COUNT* 305 thou/uL (150-400); RBC 4.07 mil/uL (4.20-5.00); RDW-CV 16.6 % (10.5-14.5)
[2019-10-05 16:14] LABS: ALBUMIN 1.5 g/dL (3.4-5.0); CALCIUM 7.7 mg/dL (8.5-10.1); CREATININE 1.1 mg/dL (0.6-1.3); POTASSIUM 4.9 mmol/L (3.5-5.1); TOTAL BILIRUBIN 0.2 mg/dL (<0.1-1.0); TOTAL PROTEIN 6.5 g/dL (6.4-8.2)
[2019-10-05 16:32] LABS: ABSOLUTE LYMPHOCYTES 0.3 thou/uL (0.8-5.3); ABSOLUTE MONOCYTES 0.2 thou/uL (0.0-1.2); ABSOLUTE NEUTROPHILS 8.6 thou/uL (1.6-8.1); HYPOCHROMASIA 2+; PLATELET ESTIMATE ADEQUATE
[2019-10-05 20:00] VITALS: BP 110/53
[2019-10-06] VITALS: BP 115/61
[2019-10-06 05:07] LABS: ABSOLUTE LYMPHOCYTES 0.7 thou/uL (0.8-5.3); ABSOLUTE MONOCYTES 0.5 thou/uL (0.0-1.2); ABSOLUTE NEUTROPHILS 6.4 thou/uL (1.6-8.1); BASOPHILS 0.2 %; HEMATOCRIT 34.3 % (37.0-47.0); HEMOGLOBIN 11.2 gm/dL (12.0-15.0); LYMPHOCYTES 9.5 %; MCH 27.1 pg (26.0-34.0); MCHC 32.8 g/dL (28.0-37.0); MCV 82.6 fL (80.0-100.0); MPV 8.9 fl. (7.2-11.1); NUCLEATED RBCS 0 /100WBC; PLATELET COUNT* 288 thou/uL (150-400); POLYS 83.3 %; RBC 4.15 mil/uL (4.20-5.00); RDW-CV 16.6 % (10.5-14.5); WBC 7.6 thou/uL (4.0-11.0)
[2019-10-06 05:28] LABS: ALBUMIN 1.5 g/dL (3.4-5.0); CALCIUM 7.8 mg/dL (8.5-10.1); CREATININE 1.2 mg/dL (0.6-1.3); POTASSIUM 4.6 mmol/L (3.5-5.1); TOTAL BILIRUBIN 0.2 mg/dL (<0.1-1.0); TOTAL PROTEIN 6.6 g/dL (6.4-8.2)
[2019-10-06 09:00] VITALS: BP 150/63
[2019-10-06 19:30] VITALS: BP 136/64
[2019-10-07] VITALS: BP 137/66
[2019-10-07 04:36] LABS: ABSOLUTE LYMPHOCYTES 1.1 thou/uL (0.8-5.3); ABSOLUTE MONOCYTES 0.6 thou/uL (0.0-1.2); ABSOLUTE NEUTROPHILS 6.9 thou/uL (1.6-8.1); BASOPHILS 0.3 %; EOSINOPHILS 0.2 %; HEMATOCRIT 36.2 % (37.0-47.0); LYMPHOCYTES 13.1 %; MCH 27.1 pg (26.0-34.0); MCV 82.1 fL (80.0-100.0); MONOCYTES 6.7 %; NUCLEATED RBCS 0 /100WBC; PLATELET COUNT* 288 thou/uL (150-400); POLYS 79.7 %; RBC 4.41 mil/uL (4.20-5.00); RDW-CV 16.4 % (10.5-14.5); WBC 8.6 thou/uL (4.0-11.0)
[2019-10-07 04:48] LABS: ALBUMIN 1.6 g/dL (3.4-5.0); CALCIUM 8.1 mg/dL (8.5-10.1); POTASSIUM 4.6 mmol/L (3.5-5.1); TOTAL BILIRUBIN 0.3 mg/dL (<0.1-1.0)
[2019-10-07 05:02] LABS: PREALBUMIN 13.1 mg/dL (18.0-35.7)
[2019-10-07 08:00] VITALS: BP 132/98
[2019-10-07 12:00] VITALS: BP 122/51
[2019-10-07 16:00] VITALS: BP 103/60
[2019-10-08 00:30] VITALS: BP 121/53
[2019-10-08 06:16] LABS: ALBUMIN 1.7 g/dL (3.4-5.0); CALCIUM 8.3 mg/dL (8.5-10.1); CREATININE 1.2 mg/dL (0.6-1.3); TOTAL BILIRUBIN 0.3 mg/dL (<0.1-1.0); TOTAL PROTEIN 7.5 g/dL (6.4-8.2)
[2019-10-08 07:12] LABS: ABSOLUTE LYMPHOCYTES 1.1 thou/uL (0.8-5.3); ABSOLUTE MONOCYTES 0.9 thou/uL (0.0-1.2); ABSOLUTE NEUTROPHILS 9.9 thou/uL (1.6-8.1); BASOPHILS 0.1 %; HEMATOCRIT 38.3 % (37.0-47.0); LYMPHOCYTES 9.3 %; MCH 26.3 pg (26.0-34.0); MCHC 31.4 g/dL (28.0-37.0); MCV 83.8 fL (80.0-100.0); MONOCYTES 7.9 %; MPV 8.7 fl. (7.2-11.1); NUCLEATED RBCS 0 /100WBC; PLATELET COUNT* 285 thou/uL (150-400); POLYS 82.7 %; RBC 4.57 mil/uL (4.20-5.00); RDW-CV 16.8 % (10.5-14.5)
[2019-10-08 08:00] VITALS: BP 133/62
[2019-10-09] VITALS (8 sets, daily range): BP systolic 105–131; BP diastolic 39–64
[2019-10-09 04:45] LABS: ABSOLUTE BASOPHILS 0.1 thou/uL (0.0-0.2); ABSOLUTE EOSINOPHILS 0.1 thou/uL (0.0-0.7); ABSOLUTE LYMPHOCYTES 1.4 thou/uL (0.8-5.3); ABSOLUTE MONOCYTES 0.8 thou/uL (0.0-1.2); ABSOLUTE NEUTROPHILS 11.6 thou/uL (1.6-8.1); BASOPHILS 0.4 %; EOSINOPHILS 0.8 %; HEMATOCRIT 33.7 % (37.0-47.0); HEMOGLOBIN 10.8 gm/dL (12.0-15.0); LYMPHOCYTES 10.3 %; MCH 26.2 pg (26.0-34.0); MPV 9.3 fl. (7.2-11.1); NUCLEATED RBCS 0 /100WBC; PLATELET COUNT* 309 thou/uL (150-400); POLYS 82.5 %; RBC 4.11 mil/uL (4.20-5.00); RDW-CV 16.7 % (10.5-14.5)
[2019-10-09 05:04] LABS: ALBUMIN 1.5 g/dL (3.4-5.0); CREATININE 1.7 mg/dL (0.6-1.3); POTASSIUM 4.2 mmol/L (3.5-5.1); TOTAL BILIRUBIN 0.3 mg/dL (<0.1-1.0); TOTAL PROTEIN 6.4 g/dL (6.4-8.2)
[2019-10-09 10:41] LABS: BE -2.2 mmol/L (-2 to +3); PCO2 27.8 mmHg (35.0-45.0); PO2 73.3 mmHg (75.0-100.0); pH 7.479 (7.340-7.450)
[2019-10-09 11:37] LABS: APTT 26.9 Seconds (25.0-31.3); INR 1.2
[2019-10-09 17:28] LABS: CALCIUM 7.1 mg/dL (8.5-10.1); CREATININE 1.6 mg/dL (0.6-1.3); MAGNESIUM 1.5 mg/dL (1.8-2.4); POTASSIUM 4.3 mmol/L (3.5-5.1)
[2019-10-10] VITALS (24 sets, daily range): BP systolic 105–151; BP diastolic 39–103
[2019-10-10 06:46] LABS: HEMATOCRIT 31.1 % (37.0-47.0); HEMOGLOBIN 9.9 gm/dL (12.0-15.0); MCHC 31.7 g/dL (28.0-37.0); MCV 81.9 fL (80.0-100.0); MPV 9.4 fl. (7.2-11.1); NUCLEATED RBCS 0 /100WBC; PLATELET COUNT* 246 thou/uL (150-400); RBC 3.79 mil/uL (4.20-5.00); RDW-CV 16.6 % (10.5-14.5); WBC 11.9 thou/uL (4.0-11.0)
[2019-10-10 06:55] LABS: CALCIUM 7.4 mg/dL (8.5-10.1); CREATININE 1.2 mg/dL (0.6-1.3); MAGNESIUM 2.4 mg/dL (1.8-2.4); PHOSPHORUS* 2.5 mg/dL (2.5-4.9); TOTAL BILIRUBIN 0.4 mg/dL (<0.1-1.0); TOTAL PROTEIN 6.4 g/dL (6.4-8.2)
[2019-10-10 07:20] LABS: PREALBUMIN 11.7 mg/dL (18.0-35.7)
[2019-10-10 07:54] LABS: ABSOLUTE LYMPHOCYTES 0.8 thou/uL (0.8-5.3); ABSOLUTE MONOCYTES 0.4 thou/uL (0.0-1.2); ABSOLUTE NEUTROPHILS 10.7 thou/uL (1.6-8.1); HYPOCHROMASIA 2+; PLATELET ESTIMATE ADEQUATE
--- NOTE | 2019-10-10 15:51 | 2DMMODE ---
[place] [address] 2 D/M-MODE ECHOCARDIOGRAM Name: CALEB CHAUDHRY Room: 001[facility] IN [facility]#: [id number] Admission: 10/02/19 Attend Phys: Joe Cortés Discharge: Date of : 34 Date of Service: 10/10/19 1550 Report #: [id number] THIS REPORT FOR: cc: Tiffanie Solorzano MD, Malathi MD Liston,Sam Perkins MD [facility] ~ APPROVED REPORT Study performed: 10/10/2019 11:04:36 EXAM: Comprehensive 2D, Doppler, and color-flow Echocardiogram Patient Location: In-Patient Room #: 001 BSA: 1.78 BP: 133/58 mmHg Rhythm: NSR Other Information Technically limited study due to uncooperative patient. Indications rule out PE COVID Tricuspid Valve RAP Estimate: 5.00 mmHg TR Peak Gr.: 32.44 mmHg RVSP: 37.00 mmHg PA Pressure: 37.00 mmHg Left Ventricle The left ventricle is normal size. There is normal LV segmental wall motion. Mild concentric left ventricular hypertrophy. The left ventricular systolic function is normal. LVEF is 60-65%. Right Ventricle The right ventricle is normal size. The right ventricular systolic function is normal. Atria Left atrium is [place] [address] 2 D/M-MODE ECHOCARDIOGRAM Name: CALEB CHAUDHRY Kia Room: [address] IN .R.#: [id number] Admission: 10/02/19 Attend Phys: Joe Cortés Discharge: Date of : 34 Date of Service: 10/10/19 155 Report #: [id number] Aortic Valve The aortic valve is normal in structure. No aortic regurgitation is present. Mitral Valve The mitral valve is normal in structure. There is no mitral valve regurgitation noted. Tricuspid Valve The tricuspid valve is normal in structure. Trace tricuspid regurgitation. The RVSP is 40 mmHg. Pulmonic Valve The pulmonary valve is normal in structure. Great Vessels The aortic root is normal in size. IVC is normal in size and collapses >50% with inspiration. Pericardium There is no pericardial effusion. <Conclusion> The left ventricle is normal size. Mild concentric left ventricular hypertrophy. The left ventricular systolic function is normal. LVEF is 60-65%. Trace tricuspid regurgitation. The RVSP is 40 mmHg. IVC is normal in size and collapses >50% with inspiration. <ELECTRONICALLY SIGNED> By: Sam Gonzales MD, FACC 10/10/191549 49 1550 Sam Gonzales MD, FACC /INF
[2019-10-10 16:37] LABS: CREATININE 1.1 mg/dL (0.6-1.3); MAGNESIUM 2.3 mg/dL (1.8-2.4); POTASSIUM 3.7 mmol/L (3.5-5.1)
--- NOTE | 2019-10-10 21:39 | CON ---
[address] [address] CONSULTATION Name: CALEB CHAUDHRY Room: [address] IN ..#: [id number] Admission: 10/02/19 Attend Phys: Gurpreet Rueda Discharge: Date of : 32 Report #: [id number] THIS REPORT FOR: //name// cc: Tiffanie Solorzano MD, Malathi MD ~ THIS REPORT FOR: //name// CC: Tiffanie Cortés DATE OF SERVICE: 10/09/2019 REQUESTING PHYSICIAN: Dr. Turner Lakhani. INDICATION FOR CONSULTATION: Acute hypoxemic respiratory failure secondary to COVID-19. HISTORY OF PRESENT ILLNESS: An 89-year-old female with past medical history is as mentioned below. This does not include any known history of smoking or congestive heart failure or COPD. The patient is a resident of a [facility] facility. She does have a history of obstructive sleep apnea. It is not known as to whether the patient has used a CPAP in the past. The patient is now admitted on 10/02/2019. She was able to provide only a limited history on initial evaluation, she was sent here after she tested positive for COVID-19. The patient also has a significant decubitus ulcer. The patient initially was not on supplemental oxygen. She has received dexamethasone. She has so far not received remdesivir. The patient overall, initially was doing well; however, it appears that her condition began to worsen yesterday. The patient previously was not on supplemental oxygen, yesterday she was needing about 4 liters of oxygen to maintain O2 saturation in the low 90s. Overnight, there has been a further deterioration. This morning, she has been placed on 40 liters high flow with 50% oxygen and has been saturating in the low 90s. When I was in the room, the patient was desaturating to around 80%. The patient, however, was continuously talking and just had a speech evaluation, which she was obviously failing the patient's nurse as well as the speech therapists were in the room when I was evaluating the patient. The patient clearly appeared to be hypoxic. She was confused and did not provide a meaningful history at the time of my evaluation. The patient was able to answer simple questions though reported that she had a cough, but not much sputum. She did not have swelling of lower extremities. There is a significant elevation in creatinine overnight, the patient is unable to provide a further history or review of systems. PAST MEDICAL HISTORY: Obstructive sleep apnea, unknown as to whether she has ever used CPAP. Has not been previously on supplemental oxygen, depression, [place] [address] CONSULTATION Name: CALEB CHAUDHRY Room: [address] IN [facility].#: [id number] Admission: 10/02/19 Attend Phys: Gurpreet Rueda Discharge: Date of : 32 Report #: [id number] hypertension, osteoarthritis, hypothyroidism, gout, diverticulitis, diabetes, hysterectomy, appendectomy, breast lump removed many years ago, right rotator cuff surgery. There is a previous echocardiogram performed earlier this year, which shows a left ventricular ejection fraction of 65-70% without elevation in right heart pressures. CURRENT MEDICATIONS: List in [facility] reviewed. HOME MEDICATIONS: List also in [facility] reviewed. ALLERGIES: IODINE AND HYDROCODONE ARE LISTED ALLERGIES. FAMILY HISTORY: There is no pertinent family history. PHYSICAL EXAMINATION: GENERAL: She is fully awake. She is confused. She was having a swallow evaluation to be failing, was satting only 80%, but was continuously talking with 50% FiO2 with 40 liters flow on high flow nasal cannula. VITAL SIGNS: Pulse of 84 and a blood pressure of 112/47. Respiratory rate was in fact not elevated significantly, but she was breathing at only around 20 to 24, which is mildly elevated. She is afebrile with a temperature of 36.9. HEENT: Head is normocephalic and atraumatic. There is no obvious throat erythema. NECK: Does not show raised JVP, asymmetry, mass or lymph nodes. CHEST: Symmetrical expansion on inspection and palpation. On auscultation, breath sounds are markedly decreased. Breath sounds bilaterally equal. I do not hear any added sounds. HEART: Regular, no murmur. ABDOMEN: Soft and nontender. EXTREMITIES: Lower extremities show no edema, no calf tenderness. SKIN: Dry and intact; however, she appears to be cyanotic and is cold and clammy. NEUROLOGICAL: Moves all extremities bilaterally equally and spontaneously with no focal deficit identified. The patient's sacral wound culture, which shows several gram-positive organisms including MRSA in [facility] reviewed. Other cultures and labs and [facility]. The patient's chest x-ray was reviewed and compared with the patient's previous chest x-rays in fact there were only small pulmonary infiltrates noted. I do not see any major pulmonary vascular congestion or large lobar infiltrates. ASSESSMENT AND PLAN: 1. Acute hypoxemic respiratory failure secondary to COVID-[place] [address] CONSULTATION Name: CALEB CHAUDHRY Room: [address] IN [facility]#: [id number] Admission: 10/02/19 Attend Phys: Gurpreet Rueda Discharge: Date of : 32 Report #: [id number] arterial blood gas is reviewed. She has type 1 respiratory failure. Therefore, I recommend being liberal with oxygen. I called the respiratory therapist and recommended increasing oxygen to O2 saturation in the mid 90s for now as the O2 saturations have been fairly variable. She remains on a continuous pulse oximetry. I understand the patient is DNR and DNI. Potentially, the patient could be a candidate for use of a BiPAP while asleep. However, the patient currently is not in a negative pressure room. We will explore this further as to whether she is able to wear a BiPAP and as to whether for this reason, she should be moved to a negative pressure room. The patient does need more IV access and I recommended placing a PICC line. 2. COVID-19. Considering significant hypoxemia, I went ahead and ordered significant doses of steroids. I also recommend that we go ahead and start her on remdesivir, giving one dose of Actemra is an option. I do not feel strongly either way about this, but will follow along and advise. Note that the patient's hypoxemia significantly out of proportion to the chest x-ray findings and therefore acute pulmonary emboli secondary to COVID-19 needs to be considered. 3. Suspected acute pulmonary embolism. I recommend obtaining stat venous Dopplers. We will go ahead and proceed with giving her IV heparin as well. My understanding we are trying to limit echos in patients who are COVID-19 positive. The patient also is confused and may not fully cooperate with an echo, but if feasible, I would like to look at the right heart pressures. 4. Pulmonary infiltrates/sepsis/decubitus infected ulcer. The patient is on vancomycin and Zosyn. Considering significant elevation in creatinine, I went ahead and discontinued vancomycin and started linezolid. We will continue with Zosyn. 5. Acute renal failure. Nephrology service has been consulted, pending Nephrology review. I ordered 2 doses of albumin and IV fluids at 80 an hour while understanding that there will be some risk in giving her fluids. This will need to be watched very closely because the patient does have significant hypoxemia. Albumin is ordered because of the patient's albumin level is only 1.5. I ordered repeat labs for 5 p.m., so that this could be reevaluated in conjunction with the Nephrology service. 6. Hypertension. Blood pressure currently on the lower side. For now, I discontinued all antihypertensive medications. 7. High aspiration risk. Recommend n.p.o. today. We will reevaluate tomorrow. 8. Long-term use of Cymbalta. This is discontinued for now while the patient is on Zyvox. The patient also is on Ultram suggest using it cautiously, I did not discontinue for now regardless the patient currently is n.p.o. and will not receive any p.o. medications. The patient is [place] [address] CONSULTATION Name: CALEB CHAUDHRY Room: [address] IN [facility]#: [id number] Admission: 10/02/19 Attend Phys: Gurpreet Rueda Discharge: Date of : 32 Report #: [id number] Total time spent providing critical care to this patient today exceeds 1 hour. <ELECTRONICALLY SIGNED> By: Paco Ward MD 10/10/19 2139 1133 [id number] Ward MD /nt
[2019-10-11] VITALS (22 sets, daily range): BP systolic 124–164; BP diastolic 46–70
[2019-10-11 05:59] LABS: ABSOLUTE LYMPHOCYTES 0.9 thou/uL (0.8-5.3); ABSOLUTE MONOCYTES 0.6 thou/uL (0.0-1.2); ABSOLUTE NEUTROPHILS 15.2 thou/uL (1.6-8.1); HEMATOCRIT 31.2 % (37.0-47.0); HEMOGLOBIN 10.2 gm/dL (12.0-15.0); LYMPHOCYTES 5.3 %; MCH 26.4 pg (26.0-34.0); MCHC 32.6 g/dL (28.0-37.0); MCV 81.2 fL (80.0-100.0); MONOCYTES 3.6 %; MPV 8.9 fl. (7.2-11.1); NUCLEATED RBCS 0 /100WBC; PLATELET COUNT* 315 thou/uL (150-400); POLYS 91.1 %; RBC 3.85 mil/uL (4.20-5.00); RDW-CV 16.4 % (10.5-14.5); WBC 16.7 thou/uL (4.0-11.0)
[2019-10-11 06:11] LABS: PREALBUMIN 12.8 mg/dL (18.0-35.7)
[2019-10-11 06:13] LABS: ALBUMIN 2.6 g/dL (3.4-5.0); CALCIUM 7.7 mg/dL (8.5-10.1); CREATININE 1.2 mg/dL (0.6-1.3); POTASSIUM 3.7 mmol/L (3.5-5.1); TOTAL BILIRUBIN 0.6 mg/dL (<0.1-1.0); TOTAL PROTEIN 6.6 g/dL (6.4-8.2)
--- NOTE | 2019-10-11 15:38 | CON ---
[address] [address] CONSULTATION Name: CALEB CHAUDHRY Room: [address] IN .R.#: [id number] Admission: 10/02/19 Attend Phys: Gurpreet Rueda Discharge: Date of : 32 Report #: [id number] THIS REPORT FOR: //name// cc: Tiffanie Solorzano MD, Malathi MD ~ THIS REPORT FOR: //name// CC: Tiffanie Cortés DATE OF SERVICE: 10/10/2019 NEPHROLOGY CONSULTATION ATTENDING PHYSICIAN: Dr. Lakhani. REASON FOR NEPHROLOGY CONSULTATION: Acute kidney injury. REASON FOR ADMISSION: Distended stomach and wound on her sacrum after positive COVID test. HISTORY OF PRESENT ILLNESS: This is an 89-year-old female with a history of apparently she has dementia. She was brought in from the correction because of weakness and a sacral wound and she was found to be COVID positive. Her creatinine was 1.2 on admission and it went to 1.7 two days ago and 1.6 yesterday and hence Nephrology was consulted. She had been kept n.p.o. and her blood pressure was also borderline and her losartan was continued and stopped only on 10/08/2019. She does take losartan and spironolactone, both and her spironolactone was not resumed here in the hospital. Her creatinine is down to 1.2 after starting IV fluids yesterday. She has passed a swallow study and IV fluids hence have been stopped today. Yesterday, she had a decompensation in terms of her respiratory status, needing high flow nasal cannula and she had worsening infiltrate on her chest x-ray, which does look better today. She was started on Actemra yesterday and Pulmonology is on board. I was not able to obtain any history from her. She did not seem oriented and she just kept saying 49. She has also been good urine last 24 hours. She has made 1850 mL of urine. REVIEW OF SYSTEMS: Because of her mental status, not able to obtain. PAST MEDICAL AND SURGICAL HISTORY: Dyspnea, arthritis, hypertension and depression, sleep apnea, cardiomegaly, hypothyroidism, gout, diverticulosis, diabetes, hysterectomy, appendectomy, right breast lumpectomy and right rotator cuff repair. HOME MEDICATIONS: Include metformin, amlodipine, allopurinol, spironolactone, isosorbide mononitrate, losartan, levothyroxine, aspirin, zolpidem, bisacodyl, [place] [address] CONSULTATION Name: CALEB CHAUDHRY Room: [address] ADM IN ..#: [id number] Admission: 10/02/19 Attend Phys: Gurpreet Rueda Discharge: Date of : 32 Report #: [id number] duloxetine, docusate, Fleet enema, magnesium hydroxide, Mylanta, and Tylenol as needed. ALLERGIES: IODINE, HYDROCODONE. FAMILY HISTORY: Not able to obtain from the patient. SOCIAL HISTORY: She is a [facility] resident. No smoking, alcohol or recreational drug use reported. HOME MEDICATIONS: As mentioned above. PHYSICAL EXAMINATION: VITAL SIGNS: Blood pressure is 133/58, her temperature is 36.9, pulse rate is 79, respiratory rate is 24, oxygenation is 96% on 40% FiO2 high flow nasal cannula, blood pressure was 133/58. GENERAL: She is not oriented. HEAD AND EYES: Atraumatic, normocephalic and she has normal conjunctivae. EARS, NOSE, AND THROAT: Mucous membranes are moist and she does have a high flow nasal cannula in place. NECK: JVD was difficult to assess. CHEST: Bilaterally diminished breath sounds. No crackles heard. CARDIOVASCULAR: S1, S2 normal. No murmurs heard. ABDOMEN: Soft, nondistended, nontender. EXTREMITIES: Lower extremities: There was no lower extremity edema. NEUROLOGIC: Function is not able to assess because she was not oriented and she has history of dementia. PSYCHIATRIC: Not able to assess. LABORATORY DATA: WBC 11.9, hemoglobin is 9.9, platelet count is 246. Sodium 140, creatinine of 1.2 today, down from 1.6 yesterday, CO2 of 28, potassium 4.0. Other labs were reviewed. IMAGING: Chest x-rays, renal ultrasound, Venous Doppler study were reviewed. ASSESSMENT: 1. Acute kidney injury, which is in the setting of intravascular volume depletion, borderline hypertension and use of losartan, baseline creatinine around 1.2 at admission. It went up to 1.7 and now down to 1.2. She is nonoliguric. Renal ultrasound showed bilateral renal stones, but they were nonobstructive with a 10-mm stone in left renal collecting system, bilateral renal cysts. UA was normal when she initially got admitted. There is no need to recheck. 2. COVID positive with acute respiratory failure and Pulmonology is involved. 3. Sacral decubitus wound, methicillin-resistant Staphylococcus aureus and strep positive. Again, [place] [address] CONSULTATION Name: CALEB CHAUDHRY Room: [address]#: [id number] Admission: 10/02/19 Attend Phys: Gurpreet Rueda Discharge: Date of : 32 Report #: [id number] 4. History of diabetes type 2. 5. History of dementia. 6. Diabetes will be managed by primary team. 7. History of psychosis as well. PLAN: 1. Her acute kidney injury is already resolved with IV fluids, fluids have been stopped today in the hope that she is going to eat and drink. If she does not eat and drink well, she may have to be restarted on some gentle hydration. 2. Try to avoid nephrotoxic agents. STARR inhibitor, ARB and try to keep MAP around 65-70. Keep losartan and spironolactone on hold. 3. Since her acute kidney injury is resolved, we will be signing off because nothing else to add from renal standpoint and call us with any questions. Discussed with the patient's nurse. <ELECTRONICALLY SIGNED> By: Ryann Griffin MD 10/11/19 1538 0930 [id number] Griffin MD /nt
[2019-10-12 04:00] VITALS: BP 140/60
[2019-10-12 06:12] LABS: ABSOLUTE LYMPHOCYTES 0.6 thou/uL (0.8-5.3); ABSOLUTE MONOCYTES 0.5 thou/uL (0.0-1.2); ABSOLUTE NEUTROPHILS 15.3 thou/uL (1.6-8.1); HEMATOCRIT 34.1 % (37.0-47.0); HEMOGLOBIN 10.8 gm/dL (12.0-15.0); LYMPHOCYTES 3.6 %; MCH 25.7 pg (26.0-34.0); MCHC 31.7 g/dL (28.0-37.0); MCV 80.9 fL (80.0-100.0); MONOCYTES 3.2 %; MPV 8.9 fl. (7.2-11.1); NUCLEATED RBCS 0 /100WBC; PLATELET COUNT* 316 thou/uL (150-400); POLYS 93.2 %; RBC 4.22 mil/uL (4.20-5.00); RDW-CV 16.4 % (10.5-14.5); WBC 16.4 thou/uL (4.0-11.0)
[2019-10-12 06:25] LABS: ALBUMIN 2.4 g/dL (3.4-5.0); CALCIUM 8.3 mg/dL (8.5-10.1); CREATININE 1.1 mg/dL (0.6-1.3); POTASSIUM 3.3 mmol/L (3.5-5.1); TOTAL BILIRUBIN 0.7 mg/dL (<0.1-1.0); TOTAL PROTEIN 6.4 g/dL (6.4-8.2)
[2019-10-12 06:26] LABS: PREALBUMIN 15.4 mg/dL (18.0-35.7)
[2019-10-12 08:06] VITALS: BP 116/62
[2019-10-12 12:00] VITALS: BP 148/70
[2019-10-12 16:32] VITALS: BP 128/42
[2019-10-12 20:20] VITALS: BP 138/56
[2019-10-13] VITALS: BP 134/73
[2019-10-13 04:00] VITALS: BP 140/68
[2019-10-13 05:00] VITALS: BP 114/61
[2019-10-13 05:40] LABS: ABSOLUTE BASOPHILS 0.1 thou/uL (0.0-0.2); ABSOLUTE LYMPHOCYTES 0.9 thou/uL (0.8-5.3); ABSOLUTE MONOCYTES 0.5 thou/uL (0.0-1.2); ABSOLUTE NEUTROPHILS 10.3 thou/uL (1.6-8.1); BASOPHILS 0.5 %; EOSINOPHILS 0.1 %; HEMATOCRIT 34.6 % (37.0-47.0); HEMOGLOBIN 11.1 gm/dL (12.0-15.0); LYMPHOCYTES 7.3 %; MCH 26.1 pg (26.0-34.0); MCHC 32.2 g/dL (28.0-37.0); MCV 81.1 fL (80.0-100.0); MONOCYTES 4.3 %; MPV 8.9 fl. (7.2-11.1); NUCLEATED RBCS 0 /100WBC; PLATELET COUNT* 298 thou/uL (150-400); POLYS 87.8 %; RBC 4.27 mil/uL (4.20-5.00); RDW-CV 16.9 % (10.5-14.5); WBC 11.7 thou/uL (4.0-11.0)
[2019-10-13 05:51] LABS: ALBUMIN 2.1 g/dL (3.4-5.0); CALCIUM 7.9 mg/dL (8.5-10.1); CREATININE 1.2 mg/dL (0.6-1.3); POTASSIUM 3.1 mmol/L (3.5-5.1); TOTAL BILIRUBIN 0.7 mg/dL (<0.1-1.0); TOTAL PROTEIN 5.8 g/dL (6.4-8.2)
[2019-10-13 08:00] VITALS: BP 136/72
[2019-10-13 11:18] VITALS: BP 118/62
[2019-10-13 20:00] VITALS: BP 126/54
[2019-10-14] VITALS: BP 130/50
[2019-10-14 04:00] VITALS: BP 147/77
[2019-10-14 09:32] VITALS: BP 135/69
[2019-10-14 12:34] VITALS: BP 142/84
[2019-10-14 17:47] VITALS: BP 132/48
[2019-10-14 20:00] VITALS: BP 133/54
[2019-10-15] VITALS: BP 130/56
[2019-10-15 04:09] LABS: ABSOLUTE EOSINOPHILS 0.5 thou/uL (0.0-0.7); ABSOLUTE LYMPHOCYTES 1.7 thou/uL (0.8-5.3); ABSOLUTE MONOCYTES 0.7 thou/uL (0.0-1.2); ABSOLUTE NEUTROPHILS 8.4 thou/uL (1.6-8.1); BASOPHILS 0.1 %; EOSINOPHILS 4.6 %; HEMATOCRIT 33.5 % (37.0-47.0); HEMOGLOBIN 10.6 gm/dL (12.0-15.0); LYMPHOCYTES 14.7 %; MCH 25.9 pg (26.0-34.0); MCHC 31.6 g/dL (28.0-37.0); MCV 81.9 fL (80.0-100.0); MONOCYTES 6.3 %; NUCLEATED RBCS 0 /100WBC; PLATELET COUNT* 230 thou/uL (150-400); POLYS 74.3 %; RBC 4.09 mil/uL (4.20-5.00); RDW-CV 17.2 % (10.5-14.5); WBC 11.4 thou/uL (4.0-11.0)
[2019-10-15 04:24] LABS: ALBUMIN 1.8 g/dL (3.4-5.0); CALCIUM 7.7 mg/dL (8.5-10.1); CREATININE 1.1 mg/dL (0.6-1.3); POTASSIUM 4.1 mmol/L (3.5-5.1); TOTAL BILIRUBIN 0.6 mg/dL (<0.1-1.0); TOTAL PROTEIN 5.3 g/dL (6.4-8.2)
[2019-10-15 08:00] VITALS: BP 141/57
[2019-10-15 12:41] VITALS: BP 144/78
[2019-10-15 16:42] VITALS: BP 142/80
[2019-10-15 20:15] VITALS: BP 138/60
[2019-10-15 23:31] VITALS: BP 163/59
[2019-10-16 04:00] VITALS: BP 138/56
[2019-10-16 08:00] VITALS: BP 132/55
[2019-10-16 12:00] VITALS: BP 124/60
[2019-10-16 17:31] VITALS: BP 135/72
[2019-10-16 19:50] VITALS: BP 146/95
[2019-10-17] VITALS: BP 157/57
[2019-10-17 04:00] VITALS: BP 108/56
[2019-10-17 08:00] VITALS: BP 140/71
[2019-10-17 09:18] LABS: ABSOLUTE BASOPHILS 0.1 thou/uL (0.0-0.2); ABSOLUTE EOSINOPHILS 0.4 thou/uL (0.0-0.7); ABSOLUTE LYMPHOCYTES 1.6 thou/uL (0.8-5.3); ABSOLUTE MONOCYTES 0.6 thou/uL (0.0-1.2); ABSOLUTE NEUTROPHILS 7.9 thou/uL (1.6-8.1); BASOPHILS 0.5 %; EOSINOPHILS 3.8 %; HEMATOCRIT 33.5 % (37.0-47.0); HEMOGLOBIN 10.8 gm/dL (12.0-15.0); LYMPHOCYTES 15.5 %; MCH 26.5 pg (26.0-34.0); MCHC 32.1 g/dL (28.0-37.0); MCV 82.5 fL (80.0-100.0); MONOCYTES 5.9 %; MPV 9.4 fl. (7.2-11.1); NUCLEATED RBCS 0 /100WBC; PLATELET COUNT* 195 thou/uL (150-400); POLYS 74.3 %; RBC 4.06 mil/uL (4.20-5.00); RDW-CV 17.7 % (10.5-14.5); WBC 10.6 thou/uL (4.0-11.0)
[2019-10-17 09:20] LABS: CREATININE 0.9 mg/dL (0.6-1.3); POTASSIUM 4.3 mmol/L (3.5-5.1)
[2019-10-17] MEDS ORDERED: LOSARTAN POTAS100 MG PO (10:03)
[2019-10-17] MEDS ORDERED: DEXAMETHASONE 22 M1 PO (10:03)
[2019-10-17 12:01] VITALS: BP 151/81
[2019-10-17 13:33] VITALS: BP 151/81
[2019-10-17 14:18] VITALS: BP 151/81
== END 2019-10-17 15:57 | DRG 177 ==
LOC: M.ERS 13:07 → M.TBA-ER 15:45 → M.2W 15:45 → M.ICU 15:45 → M.2W 18:41 → M.ICU 10-09 15:34 → M.2W 10-11 22:00
PROVIDERS: Family Medicine; Internal Medicine; Internal Medicine Critical Care Medicine; ADMIT Internal Medicine; ATTEND Internal Medicine
PROC: B548ZZA Ultrasonography of Superior Vena Cava, Guidance (ICD-10-PCS; principal; 2019-10-09)
PROC: 02HV33Z Insertion of Infusion Device into Superior Vena Cava, Percutaneous Approach (ICD-10-PCS; principal; 2019-10-09)
PROC: 5A09357 Assistance with Respiratory Ventilation, Less than 24 Consecutive Hours, Continuous Positive Airway Pressure (ICD-10-PCS; 2019-10-10)
DX: U07.1 COVID-19 (principal); A41.9 Sepsis, unspecified organism; L89.154 Pressure ulcer of sacral region, stage 4; E43 Unspecified severe protein-calorie malnutrition; J96.01 Acute respiratory failure with hypoxia; G92 Toxic encephalopathy; J12.89 Other viral pneumonia; N17.9 Acute kidney failure, unspecified; M19.90 Unspecified osteoarthritis, unspecified site; F32.9 Major depressive disorder, single episode, unspecified; E03.9 Hypothyroidism, unspecified; M10.9 Gout, unspecified; B95.62 Methicillin resistant Staphylococcus aureus infection as the cause of diseases classified elsewhere; F03.90 Unspecified dementia, unspecified severity, without behavioral disturbance, psychotic disturbance, mood disturbance, and anxiety; K57.90 Diverticulosis of intestine, part unspecified, without perforation or abscess without bleeding; K59.00 Constipation, unspecified; B95.5 Unspecified streptococcus as the cause of diseases classified elsewhere; N18.9 Chronic kidney disease, unspecified; I12.9 Hypertensive chronic kidney disease with stage 1 through stage 4 chronic kidney disease, or unspecified chronic kidney disease; E11.22 Type 2 diabetes mellitus with diabetic chronic kidney disease; G47.33 Obstructive sleep apnea (adult) (pediatric); Z66 Do not resuscitate; Z90.710 Acquired absence of both cervix and uterus; Z90.49 Acquired absence of other specified parts of digestive tract; Z79.899 Other long term (current) drug therapy; Z79.84 Long term (current) use of oral hypoglycemic drugs; Z88.8 Allergy status to other drugs, medicaments and biological substances; Z68.28 Body mass index [BMI] 28.0-28.9, adult; Z85.3 Personal history of malignant neoplasm of breast

== ENCOUNTER 2019-11-18 15:15 | Inpatient (IN) | payer MEDICARE, OTHER ==
[~2019-11-18] VITALS: Ht 162.6 cm; Wt 104.4 kg
--- NOTE | ~2019-11-18 | EMS ---
[address] [address] EMS Patient Care Report Name: HAILEE HADDAD Room: [address] Mary#: [id number] Admission: 11/18/19 Attend Phys: Turner Lakhani MD Discharge: Date of : 32 Report #: [id number] THIS REPORT FOR: //name// Report Transmitted: 11/19/2019 01:[address] [facility] Incident [id number] @ 11/18/2019 14:03 Incident Location [address] [place] [address] Patient Hailee Haddad Female, 89 Years 1930 Patient Address [address] [place] [address] Patient History Endocrine Condition - Other,Unspecified dementia,Hypothyroidism, unspecified,Gout,Edema, unspecified,Primary osteoarthritis of other joints,Dysthymic disorder, Patient Allergies , Patient Medications Acetaminophen, Allopurinol, Aspirin, Docusate, Doxycycline, , Losartan, Magnesium Hydroxide, Melatonin, Metformin, Mylanta, Nystatin, Tramadol, Dexamethasone, Doxycycline, Chief Complaint Abdominal pain/discomfort Disposition Transported No Lights/[place] Reason Sick Person Transported To [address] [address] EMS Patient Care Report Name: HAILEE HADDAD Room: [address] Mary#: [id number] Admission: 11/18/19 Attend Phys: Turner Lakhani MD Discharge: Date of : 32 Report #: [id number] dispatched for abdominal pain. Arrived on scene of a memory care facility. Staff greets EMS at door with patient information. She reports that patient had an episode of vomiting post breakfast yesterday. She has been anorexic since and had an episode of vomiting bile today with complaints of abdominal pain. No change in bowel habits. Patient has a sacral ulcer that is packed. She stated this is down to the bone and patient is awaiting consultation with surgeon for biopsy due to possible osteomyelitis. Patient has been afebrile. Patient is alert to self with a history of dementia. Upon arrival to the patient, she is found laying supine in bed with staff at her side. She is alert, confused at baseline with no immediate life-threats noted. Patient becomes agitated during questioning. She admits to abdominal pain that comes and goes. She describes it as a "sick feeling". She denies chest pain and shortness of breath. Vitals and 12-lead obtained at patient side. Patient did have an episode of vomiting bile. Patient does not want to be transported to the hospital but after explaining the situation, she did agree to go. Patient does not ambulate and normally requires a maranda life. Staff request transport to [place] for evaluation. Prior to moving patient to [facility], maranda pad removed by staff. Patient was then transferred to cot via drawsheet and help from staff. Patient was secured via safety straps plus side rails, taken to ambulance and loaded without incident. Patient complained of pain in her sacrum. Attempt made to position patient on her left side with pillow placed behind for support. Patient stated she had no relief. Physical assessment as documented. IV access with blood glucose obtained. Patient given IV Zofran, IV Fentanyl and fluids during transport. Patient had no further incidents of vomiting. Patient stated she did no have any relief from pain medication but did appear to be more comfortable. Patient remained monitored with supportive care provided. At destination, patient was unloaded, taken to room 7 and all monitoring removed. Patient was transferred to facility bed via drawsheet and help from staff. Report, paperwork to RN and signatures obtained. Narcotic waste performed and signature obtained. Care transferred and call cleared. Initial Vitals @14:17Pain: 09/19, @15:00Pain: 09/19, @14:16SpO2: 93, @14:37SpO2: 97, @14:38SpO2: 96, @14:56SpO2: 96, @14:57SpO2: 97, @15:02SpO2: 94, @15:04SpO2: 96, @14:23 @14:16P: 98,R: 17,BP: 120/80, @14:25P: 100,R: 16,BP: 128/77, @14:57P: 101,R: 16,BP: 141/96, @15:04P: 85,R: 18,BP: 138/57, [place] [address] EMS Patient Care Report Name: HAILEE HADDAD Room: [address] Mary#: [id number] Admission: 11/18/19 Attend Phys: Turner Lakhani MD Discharge: Date of : 32 Report #: [id number] @14:16GCS: 14, @14:25GCS: 14, @14:57GCS: 14, @15:04GCS: 14, @14:16 @14:52Glucose: 178, Assessments @14:16MENTAL:SKIN:HEENT:LUNG SOUNDS:ABDOMEN:PELVIS//GI:EXTREMITIES:PULSE:NEURO: Impression Acute abdomen Procedures @14:55Fentanyl - 50.000 Micrograms (mcg) - Intravenous (IV)Response: Unchanged@15:00Ondansetron - 4.000 Milligrams (mg) - Intravenous (IV)Response: Unchanged@14:38 cc () Site: Antecubital-LeftResponse: UnchangedFailed@14:48 cc () Site: Other Peripheral (Not Listed)Response: UnchangedFailed@14:50 cc () Site: Other Peripheral (Not Listed)Response: UnchangedSucceeded@14:2312-Lead ECGResponse: UnchangedSucceeded Timeline 13:59,Call Received 13:59,Dispatch Notified 13:59,Psap Call 14:03,Dispatched 14:03,En Route 14:15,On Scene 14:16,At Patient 14:16,BP: / M,PULSE: ,RR: R,SPO2: 93 Ox,ETCO2: ,BG: ,PAIN: ,GCS: , 14:16,BP: 120/80 M,PULSE: 98,RR: 17 R,SPO2: Ox,ETCO2: ,BG: ,PAIN: ,GCS: , 14:16,BP: / M,PULSE: ,RR: R,SPO2: Ox,ETCO2: ,BG: ,PAIN: ,GCS: 14, 14:16,BP: / M,PULSE: ,RR: R,SPO2: Ox,ETCO2: ,BG: ,PAIN: ,GCS: , 14:17,BP: / M,PULSE: ,RR: R,SPO2: Ox,ETCO2: ,BG: ,PAIN: 7,GCS: , 14:23,12-Lead ECG,Response: UnchangedSucceeded, 14:23,BP: / M,PULSE: ,RR: R,SPO2: Ox,ETCO2: ,BG: ,PAIN: ,GCS: , 14:25,BP: 128/77 M,PULSE: 100,RR: 16 R,SPO2: Ox,ETCO2: ,BG: ,PAIN: ,GCS: , 14:25,BP: / M,PULSE: ,RR: R,SPO2: Ox,ETCO2: ,BG: ,PAIN: ,GCS: 14, 14:37,BP: / M,PULSE: ,RR: R,SPO2: 97 Ox,ETCO2: ,BG: ,PAIN: ,GCS: , 14:38, cc Site: Antecubital-Left,Response: UnchangedFailed, 14:38,BP: / M,PULSE: ,RR: R,SPO2: 96 Ox,ETCO2: ,BG: ,PAIN: ,GCS: , 14:48, cc Site: Other Peripheral (Not Listed),Response: UnchangedFailed, 14:50, cc Site: Other Peripheral (Not Listed),Response: UnchangedSucceeded, 14:51,Depart Scene 14:52,BP: / M,PULSE: ,RR: R,SPO2: Ox,ETCO2: ,B,PAIN: ,GCS: , [place] [address] EMS Patient Care Report Name: HAILEE HADDAD Room: [address] M.Max#: [id number] Admission: 11/18/19 Attend Phys: Turner Lakhani MD Discharge: Date of : 32 Report #: [id number] 14:55,Fentanyl - 50.000 Micrograms (mcg) - Intravenous (IV),Response: Unchanged 14:56,BP: / M,PULSE: ,RR: R,SPO2: 96 Ox,ETCO2: ,BG: ,PAIN: ,GCS: , 14:57,BP: / M,PULSE: ,RR: R,SPO2: 97 Ox,ETCO2: ,BG: ,PAIN: ,GCS: , 14:57,BP: 141/96 M,PULSE: 101,RR: 16 R,SPO2: Ox,ETCO2: ,BG: ,PAIN: ,GCS: , 14:57,BP: / M,PULSE: ,RR: R,SPO2: Ox,ETCO2: ,BG: ,PAIN: ,GCS: 14, 15:00,Ondansetron - 4.000 Milligrams (mg) - Intravenous (IV),Response: Unchanged 15:00,BP: / M,PULSE: ,RR: R,SPO2: Ox,ETCO2: ,BG: ,PAIN: 7,GCS: , 15:02,BP: / M,PULSE: ,RR: R,SPO2: 94 Ox,ETCO2: ,BG: ,PAIN: ,GCS: , 15:04,BP: / M,PULSE: ,RR: R,SPO2: 96 Ox,ETCO2: ,BG: ,PAIN: ,GCS: , 15:04,BP: 138/57 M,PULSE: 85,RR: 18 R,SPO2: Ox,ETCO2: ,BG: ,PAIN: ,GCS: , 15:04,BP: / M,PULSE: ,RR: R,SPO2: Ox,ETCO2: ,BG: ,PAIN: ,GCS: 14, 15:04,At Destination 15:31,Call Closed Disclaimer v1.1 Copyright 2020 [employer] This EMS Care Summary contains data elements from the applicable legal record (which may be displayed differently). It is designed to provide pertinent information for the following purposes: continuity of care, clinical quality, and state data reporting. The complete legal record is available to ED staff and administrators of the receiving hospital in [facility]'s Patient Tracker. All data is provided "as is."
[~2019-11-18 15:15] MED LIST changes: +DEXAMETHASONE 22 M1 PO; +SUPER THERAVIT1 EACH PO
[2019-11-18 15:16] VITALS: BP 113/36
[2019-11-18 16:03] LABS: HEMATOCRIT 33.3 % (37.0-47.0); HEMOGLOBIN 10.8 gm/dL (12.0-15.0); MCH 26.7 pg (26.0-34.0); MCHC 32.5 g/dL (28.0-37.0); MPV 8.9 fl. (7.2-11.1); NUCLEATED RBCS 0 /100WBC; PLATELET COUNT* 307 thou/uL (150-400); RBC 4.06 mil/uL (4.20-5.00); RDW-CV 22.6 % (10.5-14.5); WBC 15.4 thou/uL (4.0-11.0)
[2019-11-18 16:11] LABS: CALCIUM 7.8 mg/dL (8.5-10.1); CREATININE 0.9 mg/dL (0.6-1.3); POTASSIUM 3.8 mmol/L (3.5-5.1)
[2019-11-18 16:22] LABS: ALBUMIN 1.7 g/dL (3.4-5.0); TOTAL BILIRUBIN 0.4 mg/dL (<0.1-1.0)
[2019-11-18 16:35] LABS: ABSOLUTE LYMPHOCYTES 1.4 thou/uL (0.8-5.3); ABSOLUTE MONOCYTES 0.8 thou/uL (0.0-1.2); ABSOLUTE NEUTROPHILS 13.2 thou/uL (1.6-8.1)
[2019-11-18 16:36] LABS: ANISOCYTOSIS 2+; PLATELET ESTIMATE ADEQUATE
[2019-11-18 16:38] LABS: MICROCYTES Occasional
[2019-11-18] MEDS ORDERED: ACIDOPHILUS1 EAC3 PO (17:31)
[2019-11-18] MEDS ORDERED: DORYX MPC120 MG PO (17:32)
[2019-11-18] MEDS ORDERED: MELATONIN10 M3 PO (17:33)
[2019-11-18] MEDS ORDERED: VITAMIN C500 M1 PO (17:34)
[2019-11-18 20:30] VITALS: BP 129/61
[2019-11-18 20:33] VITALS: BP 120/88
[2019-11-19] VITALS (7 sets, daily range): BP systolic 97–155; BP diastolic 45–122
--- NOTE | 2019-11-19 10:50 | EKG ---
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 : [id number] Requested By: Pascual Stuart Order Number: [id number] MD: Mich Fisher Measurements Intervals [place] Rate: 82 P: 0 SD: 193 QRS: 8 QRSD: 99 T: 7 QT: 366 QTc: 428 Interpretive Statements Sinus rhythm Atrial premature complex Anteroseptal infarct, age indeterminate Compared to ECG 10/02/2019 13:14:52 Atrial premature complex(es) now present Myocardial infarct finding still present Electronically Signed On 11-19-2019 10:50:11 CDT by Mich Fisher [email or web address] <ELECTRONICALLY SIGNED> By: Mich iFsher MD, [facility] 11/19/19 1050 1523 1523 Mich Fisher MD, FAC /EPI
[2019-11-20] VITALS: BP 147/51
[2019-11-20 04:00] VITALS: BP 129/64
[2019-11-20 08:00] VITALS: BP 101/66
[2019-11-20 08:14] LABS: ABSOLUTE BASOPHILS 0.1 thou/uL (0.0-0.2); ABSOLUTE EOSINOPHILS 0.2 thou/uL (0.0-0.7); ABSOLUTE LYMPHOCYTES 1.6 thou/uL (0.8-5.3); ABSOLUTE MONOCYTES 0.7 thou/uL (0.0-1.2); ABSOLUTE NEUTROPHILS 6.7 thou/uL (1.6-8.1); BASOPHILS 1.2 %; EOSINOPHILS 2.4 %; HEMATOCRIT 30.6 % (37.0-47.0); HEMOGLOBIN 9.9 gm/dL (12.0-15.0); LYMPHOCYTES 17.3 %; MCH 26.6 pg (26.0-34.0); MCHC 32.2 g/dL (28.0-37.0); MCV 82.5 fL (80.0-100.0); MONOCYTES 7.3 %; MPV 8.4 fl. (7.2-11.1); NUCLEATED RBCS 0 /100WBC; PLATELET COUNT* 296 thou/uL (150-400); POLYS 71.8 %; RBC 3.71 mil/uL (4.20-5.00); RDW-CV 22.2 % (10.5-14.5); WBC 9.4 thou/uL (4.0-11.0)
[2019-11-20 08:19] LABS: CALCIUM 6.6 mg/dL (8.5-10.1); CREATININE 0.8 mg/dL (0.6-1.3); POTASSIUM 3.6 mmol/L (3.5-5.1)
[2019-11-20 12:00] VITALS: BP 156/48
[2019-11-20 17:39] VITALS: BP 137/75
[2019-11-20 20:00] VITALS: BP 122/50
[2019-11-21 00:30] VITALS: BP 126/45
[2019-11-21 04:42] VITALS: BP 130/55
[2019-11-21 04:57] LABS: ABSOLUTE BASOPHILS 0.1 thou/uL (0.0-0.2); ABSOLUTE EOSINOPHILS 0.3 thou/uL (0.0-0.7); ABSOLUTE LYMPHOCYTES 1.5 thou/uL (0.8-5.3); ABSOLUTE MONOCYTES 0.7 thou/uL (0.0-1.2); ABSOLUTE NEUTROPHILS 5.4 thou/uL (1.6-8.1); BASOPHILS 0.8 %; EOSINOPHILS 3.6 %; HEMATOCRIT 26.4 % (37.0-47.0); HEMOGLOBIN 8.5 gm/dL (12.0-15.0); LYMPHOCYTES 19.1 %; MCH 26.9 pg (26.0-34.0); MCHC 32.3 g/dL (28.0-37.0); MCV 83.2 fL (80.0-100.0); MONOCYTES 8.3 %; MPV 8.8 fl. (7.2-11.1); NUCLEATED RBCS 0 /100WBC; PLATELET COUNT* 266 thou/uL (150-400); POLYS 68.2 %; RBC 3.17 mil/uL (4.20-5.00); RDW-CV 22.2 % (10.5-14.5); WBC 7.9 thou/uL (4.0-11.0)
[2019-11-21 05:10] LABS: ALBUMIN 1.2 g/dL (3.4-5.0); CALCIUM 6.2 mg/dL (8.5-10.1); CREATININE 0.8 mg/dL (0.6-1.3); POTASSIUM 3.8 mmol/L (3.5-5.1); TOTAL BILIRUBIN 0.2 mg/dL (<0.1-1.0); TOTAL PROTEIN 4.5 g/dL (6.4-8.2)
[2019-11-21 08:00] VITALS: BP 120/60
[2019-11-21 08:10] VITALS: BP 120/60
[2019-11-21 16:00] VITALS: BP 120/65
[2019-11-21 20:00] VITALS: BP 157/89
[2019-11-22] VITALS: BP 117/68
[2019-11-22 04:00] VITALS: BP 119/68
[2019-11-22 08:00] VITALS: BP 145/62
[2019-11-22 12:00] VITALS: BP 144/60
[2019-11-22 16:00] VITALS: BP 138/71
[2019-11-23] VITALS: BP 122/69
[2019-11-23 04:00] VITALS: BP 120/47
[2019-11-23 08:00] VITALS: BP 147/57
[2019-11-23 12:35] VITALS: BP 139/55
[2019-11-23 17:39] LABS: URINE BILIRUBIN NEGATIVE (Negative); URINE BLOOD TRACE (Negative); URINE CLARITY CLEAR; URINE COLOR YELLOW; URINE GLUCOSE-RANDOM NEGATIVE (Negative); URINE KETONES NEGATIVE (Negative); URINE LEUKOCYTES NEGATIVE (Negative); URINE NITRITE NEGATIVE (Negative); URINE PROTEIN NEGATIVE (Negative); URINE SPECIFIC GRAVITY 1.015 (1.005-1.030); URINE UROBILINOGEN 0.2 E.U./dl (0.2-1.0)
[2019-11-23 17:44] VITALS: BP 158/79
[2019-11-24] VITALS (10 sets, daily range): BP systolic 76–180; BP diastolic 37–73
[2019-11-24 17:43] LABS: ABSOLUTE BASOPHILS 0.1 thou/uL (0.0-0.2); ABSOLUTE EOSINOPHILS 0.3 thou/uL (0.0-0.7); ABSOLUTE LYMPHOCYTES 1.3 thou/uL (0.8-5.3); ABSOLUTE MONOCYTES 0.7 thou/uL (0.0-1.2); BASOPHILS 1.2 %; EOSINOPHILS 2.2 %; HEMATOCRIT 30.6 % (37.0-47.0); HEMOGLOBIN 9.9 gm/dL (12.0-15.0); LYMPHOCYTES 10.8 %; MCH 26.6 pg (26.0-34.0); MCHC 32.4 g/dL (28.0-37.0); MCV 82.1 fL (80.0-100.0); MONOCYTES 5.3 %; MPV 8.8 fl. (7.2-11.1); NUCLEATED RBCS 0 /100WBC; PLATELET COUNT* 325 thou/uL (150-400); POLYS 80.5 %; RBC 3.73 mil/uL (4.20-5.00); WBC 12.4 thou/uL (4.0-11.0)
[2019-11-24 18:00] LABS: ALBUMIN 1.5 g/dL (3.4-5.0); CALCIUM 6.6 mg/dL (8.5-10.1); POTASSIUM 3.4 mmol/L (3.5-5.1); TOTAL BILIRUBIN 0.2 mg/dL (<0.1-1.0); TOTAL PROTEIN 5.4 g/dL (6.4-8.2)
[2019-11-24 18:04] LABS: MAGNESIUM 0.6 mg/dL (1.8-2.4)
[2019-11-24 18:06] LABS: ANISOCYTOSIS 2+; HYPOCHROMASIA Occasional; PLATELET ESTIMATE ADEQUATE
[2019-11-24 18:08] LABS: OVALOCYTES Occasional
[2019-11-24 18:50] LABS: ESR (SEDRATE) 100 mm/hr (0-30)
[2019-11-25] VITALS (10 sets, daily range): BP systolic 89–176; BP diastolic 56–71
[2019-11-25 03:10] LABS: CALCIUM 6.6 mg/dL (8.5-10.1); POTASSIUM 4.2 mmol/L (3.5-5.1)
[2019-11-26 08:00] VITALS: BP 126/70
[2019-11-26 17:00] VITALS: BP 140/83
[2019-11-26 20:00] VITALS: BP 121/58
[2019-11-27 00:09] VITALS: BP 148/97
[2019-11-27 04:41] VITALS: BP 137/90
[2019-11-27 08:00] VITALS: BP 175/68
[2019-11-27] MEDS ORDERED: ZYPREXA 5 MG TAB5 M1 PO (10:51)
[2019-11-27] MEDS ORDERED: VANCO 750750 MG/150 IV (10:51)
[2019-11-27 16:00] VITALS: BP 190/67
[2019-11-27 20:00] VITALS: BP 147/89
[2019-11-28 08:00] VITALS: BP 183/65
[2019-11-28 17:49] VITALS: BP 157/78
[2019-11-28 20:00] VITALS: BP 145/58
[2019-11-29 04:00] VITALS: BP 163/75
[2019-11-29 08:00] VITALS: BP 146/62
[2019-11-29 20:00] VITALS: BP 146/62
[2019-11-30 08:00] VITALS: BP 163/64
[2019-11-30 16:00] VITALS: BP 137/67
[2019-11-30 20:05] VITALS: BP 196/68
[2019-12-01 08:20] VITALS: BP 150/68
== END 2019-12-01 13:43 | DRG 871 ==
LOC: M.ERS 15:15 → M.TBA-ER 17:38 → M.2W 20:15 → M.3W 11-30 18:37
PROVIDERS: Emergency Medicine Emergency Medical Services; Internal Medicine; ADMIT Internal Medicine; ATTEND Internal Medicine
PROC: 02HV33Z Insertion of Infusion Device into Superior Vena Cava, Percutaneous Approach (ICD-10-PCS; principal; 2019-11-25)
PROC: B548ZZA Ultrasonography of Superior Vena Cava, Guidance (ICD-10-PCS; principal; 2019-11-25)
DX: A41.9 Sepsis, unspecified organism (principal); L89.154 Pressure ulcer of sacral region, stage 4; E43 Unspecified severe protein-calorie malnutrition; M46.28 Osteomyelitis of vertebra, sacral and sacrococcygeal region; F03.90 Unspecified dementia, unspecified severity, without behavioral disturbance, psychotic disturbance, mood disturbance, and anxiety; E03.9 Hypothyroidism, unspecified; E11.9 Type 2 diabetes mellitus without complications; D64.9 Anemia, unspecified; M19.90 Unspecified osteoarthritis, unspecified site; I10 Essential (primary) hypertension; F32.9 Major depressive disorder, single episode, unspecified; K57.90 Diverticulosis of intestine, part unspecified, without perforation or abscess without bleeding; M10.9 Gout, unspecified; Z20.828 Contact with and (suspected) exposure to other viral communicable diseases; Z90.710 Acquired absence of both cervix and uterus; Z68.39 Body mass index [BMI] 39.0-39.9, adult; Z90.49 Acquired absence of other specified parts of digestive tract; Z79.84 Long term (current) use of oral hypoglycemic drugs; Z79.82 Long term (current) use of aspirin; Z79.899 Other long term (current) drug therapy; Z91.018 Allergy to other foods; Z91.048 Other nonmedicinal substance allergy status; Z74.01 Bed confinement status